=== PATIENT | female | born 1990 | race Caucasian/White ===

== ENCOUNTER 2016-10-06 10:28 | Emergency (ER) | payer OTHER, SELFPAY ==
[~2016-10-06] VITALS: Ht 170.2 cm; Wt 65.8 kg
[~2016-10-06 10:28] MED LIST: /INSUREG SC; ACET650S3 PO; ACET650T PO; AFRI0.0511; AUGM875T27 PO; BACT800T5 PO; BIRTH CONTROL PO; BISAC5TA PO; CEPH500C PO; DIABETIC VITAMIN PO; DIFL150T PO; EXCETAB68 PO; EXCETAB80 PO; EXCETAB81 PO; IBUP200T2 PO; IBUP60TA PO; IBUP80TA FT; INSUH10VL INJ; INSUH10VL SC; INSULANT SC; INSULIN PUMP SC; KEFL500C7 PO; MACR100C3 PO; MELA1CAP2 PO; MIRA3350 PO; ONDA1TAB15 PO; ONDA1TAB16 PO; ONDA4INJ48 PO; ORTHTAB5 PO; PERCOCET PO; PRENTAB7 PO; PRIL20CA PO; SENO8.6T10 PO; SENO8.6T9 PO; SUDA30TA PO; TRAZ50TA2 PO; TRAZ50TA4 OR; TRINTAB PO; TRINTAB11 PO; TYLE325T5 PO; VITAPRTA PO; VITMTA PO; YASM3TAB2 PO; YAZ3TAB PO; ZOFR20TA PO; ZOFR4SOL PO; ZOFR4TAB3 PO; [UNRECOGNIZED DRUG - CODE] PO; ditropan PO; novolog
[2016-10-06 10:29] VITALS: BP 116/67
[2016-10-06] MEDS ORDERED: LIDOCAINE 1% MDV 20ML VIAL SC ONE (11:00)
[2016-10-06] MEDS ORDERED: CLIN1CAP5 PO (11:31)
== END 2016-10-06 11:53 | disposition home or self-care (01) ==
LOC: M ED 11:43
DX: N76.2 Acute vulvitis (principal); J45.909 Unspecified asthma, uncomplicated; D25.9 Leiomyoma of uterus, unspecified; E10.9 Type 1 diabetes mellitus without complications; N83.209 Unspecified ovarian cyst, unspecified side; M43.10 Spondylolisthesis, site unspecified; F90.9 Attention-deficit hyperactivity disorder, unspecified type; Z79.4 Long term (current) use of insulin; Z79.3 Long term (current) use of hormonal contraceptives; Z88.8 Allergy status to other drugs, medicaments and biological substances; Z91.011 Allergy to milk products; Z87.442 Personal history of urinary calculi; Z87.440 Personal history of urinary (tract) infections

== ENCOUNTER 2017-02-06 20:26 | Emergency (ER) | payer OTHER ==
[~2017-02-06] VITALS: Ht 170.2 cm; Wt 62.7 kg
[~2017-02-06 20:26] MED LIST changes: +CLIN150C14 PO; +KEFL500C17 PO; -KEFL500C7 PO; -MACR100C3 PO; +MACR100C43 PO; -ONDA1TAB15 PO; -ONDA1TAB16 PO; +ONDA4TAB5 PO; +ONDA8TAB7 PO; +TRAZ50TA11 OR; -TRAZ50TA4 OR; -TRINTAB PO; +TRINTAB3 PO; +YAZ1TAB PO; -YAZ3TAB PO
[2017-02-06] MEDS ORDERED: HumuLIN R (REGULAR) INSULIN (NovoLIN R) **100U/ML** PER UNIT IV ONE (21:15)
[2017-02-06] MEDS ORDERED: NS 1,000 ML IV ONE (21:15)
[2017-02-06 21:40] LABS: BASO # 0.1 K/mm3 (0.0-0.2); BASO % 0.7 % (0.0-1.0); EOS # 0.1 K/mm3 (0.0-0.50); EOS % 1.6 % (0.0-3.0); LARGE UNSTAINED CELL # 0.2 K/mm3 (0.0-0.4); LARGE UNSTAINED CELL % 1.8 % (0.0-4.0); LYMPH % 21.6 % (24.0-44.0); MONO # 0.4 K/mm3 (0.0-0.8); MONO % 4.6 % (0.0-5.0); NEUTROPHILS # 5.8 K/mm3 (1.8-7.7); NEUTROPHILS % 69.7 % (36.0-66.0); PLATELET COUNT, AUTOMATED 273 k/mm3 (150-450); RED CELL DISTRIBUTION WIDTH 12.3 % (11.5-14.5); WHITE BLOOD COUNT 8.4 K/mm3 (4.0-10.0)
[2017-02-06 22:29] LABS: CONTROL LINE HCG INT CTR LINE PRESENT
[2017-02-06 22:43] LABS: ALBUMIN 3.6 GM/DL (3.2-5.2); ALBUMIN/GLOBULIN RATIO 1.13 (1.00-1.93); ALKALINE PHOSPHATASE 76 U/L (45-117); ALT/SGPT 18 U/L (12-78); AMYLASE 23 U/L (25-115); ANION GAP 8 MEQ/L (8-16); AST/SGOT 10 U/L (15-37); BILIRUBIN,DIRECT 0.2 MG/DL (0.0-0.2); BILIRUBIN,TOTAL 0.6 MG/DL (0.2-1.0); BLOOD UREA NITROGEN 14 MG/DL (7-18); CALCIUM LEVEL 8.7 MG/DL (8.5-10.1); CARBON DIOXIDE LEVEL 27 MEQ/L (21-32); CHLORIDE LEVEL 102 MEQ/L (98-107); CREATININE FOR GFR 0.93 MG/DL (0.55-1.02); GLOMERULAR FILTRATION RATE > 60.0 (>60); GLUCOSE, FASTING 356 MG/DL (70-105); POTASSIUM SERUM 3.7 MEQ/L (3.5-5.1); SODIUM LEVEL 137 MEQ/L (136-145); TOTAL PROTEIN 6.8 GM/DL (6.4-8.2)
[2017-02-07 00:20] VITALS: BP 100/65
--- NOTE | 2017-02-07 00:40 | REPUSA ---
CLINICAL HISTORY: Abdominal pain. Left colic. TECHNIQUE: Multiple axial, sagittal and coronal CT images were obtained through the abdomen and pelvi s without administration of oral or IV contrast material. COMMENTS: The liver is of uniform attenuation without mass or defect. There is no intra or extrahepatic biliary ductal dilatation. The spleen is normal. The gallbladder is contracted. The pancreas is of normal co ntour and attenuation characteristics. There is no evidence of adrenal mass. The kidneys are normal in size, shape and configuration. No renal or ureteral calculi are identified. There is no hydroureter or hydronephrosis. There is no evidence for appendicitis. There is severe wall thickening noted involving duodenum and j ejunum compatible with enteritis. No evidence for small or large bowel obstruction. There is no evide nce of abdominal ascites or lymphadenopathy. There is no evidence of intrinsic or extrinsic bladder mass. There is no pelvic lymphadenopathy. The uterus and ovaries are grossly WNL. Trace fluid is noted in the cul-de-sac. Images of the lung bases show no evidence of pleural or parenchymal mass. There are no pleural effusi ons. The bony structures are free of lytic or blastic lesions. IMPRESSION: No renal or ureteral calculi are identified. There is no hydroureter or hydronephrosis. Severe wall thickening noted involving duodenum and jejunum compatible with enteritis. Consultation w [facility] service is recommended. Thank you for your kind referral of this patient.
== END 2017-02-07 01:15 | disposition home or self-care (01) ==
LOC: M ED 20:26
DX: E10.65 Type 1 diabetes mellitus with hyperglycemia (principal); K52.9 Noninfective gastroenteritis and colitis, unspecified; Z97.4 Presence of external hearing-aid; Z79.3 Long term (current) use of hormonal contraceptives; Z91.011 Allergy to milk products; Z87.442 Personal history of urinary calculi; Z86.39 Personal history of other endocrine, nutritional and metabolic disease

== ENCOUNTER 2017-03-23 11:51 | Emergency (ER) | payer OTHER ==
[~2017-03-23] VITALS: Ht 170.2 cm; Wt 61.4 kg
[2017-03-23] MEDS ORDERED: LANTINJ4 SC (11:58)
[2017-03-23] MEDS ORDERED: NOVOINJ3 SC (11:58)
[2017-03-23] MEDS ORDERED: NS 1,000 ML IV ONE (12:45)
[2017-03-23 12:49] LABS: BASO # 0.1 10^3/uL (0.0-0.2); BASO % 0.8 % (0.0-1.0); CENTRAL VEN BASE EXCESS -1.5; CENTRAL VEN PARTL PRESSURE CO2 41.5 mmHg; CENTRAL VEN PARTL PRESSURE O2 30.6 mmHg; CENTRAL VEN STANDARD HCO3 22.2 MEQ/L; CENTRAL VEN TOTAL CO2 24.9 MEQ/L; CENTRAL VENOUS HCO3 23.7 MEQ/L; CENTRAL VENOUS PH 7.374 UNITS; EOS # 0.1 10^3/uL (0.0-0.50); IMMATURE GRANULOCYTE % 0.1 % (0-0); LYMPH # 1.6 10^3/uL (1.5-6.5); LYMPH % 21.8 % (24.0-44.0); MEAN CORPUSCULAR HEMOGLOBIN 31.3 pg (27.0-33.0); MEAN CORPUSCULAR VOLUME 89.6 fl (80.0-96.0); MONO # 0.5 10^3/uL (0.0-0.8); MONO % 6.8 % (0.0-5.0); NEUTROPHILS # 5.1 10^3/uL (1.8-7.7); NEUTROPHILS % 69.5 % (36.0-66.0); PLATELET COUNT, AUTOMATED 273 10^3/uL (150-450); RED CELL DISTRIBUTION WIDTH 12.3 % (11.5-14.5); WHITE BLOOD COUNT 7.3 10^3/uL (4.0-10.0)
[2017-03-23 13:10] LABS: ALBUMIN/GLOBULIN RATIO 1.05 (1.00-1.93); ALKALINE PHOSPHATASE 79 U/L (45-117); ALT/SGPT 16 U/L (12-78); ANION GAP 9 MEQ/L (8-16); AST/SGOT 8 U/L (15-37); BILIRUBIN,DIRECT 0.2 MG/DL (0.0-0.2); BILIRUBIN,TOTAL 0.6 MG/DL (0.2-1.0); BLOOD UREA NITROGEN 12 MG/DL (7-18); CALCIUM LEVEL 9.3 MG/DL (8.5-10.1); CARBON DIOXIDE LEVEL 25 MEQ/L (21-32); CHLORIDE LEVEL 101 MEQ/L (98-107); CREATININE FOR GFR 0.95 MG/DL (0.55-1.02); GLOMERULAR FILTRATION RATE > 60.0 (>60); GLUCOSE, FASTING 315 MG/DL (70-105); POTASSIUM SERUM 4.1 MEQ/L (3.5-5.1); SODIUM LEVEL 135 MEQ/L (136-145); TOTAL PROTEIN 7.8 GM/DL (6.4-8.2)
[2017-03-23 13:47] LABS: CONTROL LINE UCG INT CTR LINE PRESENT
[2017-03-23] MEDS ORDERED: ISOVUE-370 76% 100ML VIAL (Q9967) As Ordered ONE (13:59)
--- NOTE | 2017-03-23 15:02 | REP ---
CT abdomen and pelvis with IV but without oral contrast: History: Lower abdominal pain. Comparison CT study is from February 06, 2017. CT contrast dose: 100 mL of intravenous Isovue 370. CT findings: Preliminary digital operations consultant radiograph demonstrates an unremarkable bowel gas pattern. The lung bases are clear. There is no evidence of pleural effusion or upper abdominal ascites. The liver and the spleen are normal in size and homogeneous in texture. No adrenal lesion is seen. The gallbladder is unremarkable. The pancreas shows no morphologic abnormality. The kidneys enhance symmetrically and are unremarkable. There is no evidence of hydronephrosis or intrarenal calculus. No retroperitoneal mass or adenopathy is seen. Abdominal pelvic CT images demonstrate a normal caliber partially air-filled non-inflamed appendix in the right pelvis. Small and large bowel loops are unremarkable. Uterus is normal in appearance tipped somewhat to the left. No ovarian mass or significant cyst is seen. There is some contrast enhancement in the right ovary consistent with an involuting follicle cyst. No free fluid or free air. No abdominal wall defect is seen. No bony destructive lesion is observed. There is a bilateral L5 spondylolysis and a grade 1, 3 mm, L5-S1 spondylolisthesis noted incidentally. No bladder calculus is seen. Impression: No acute intra-abdominal abnormality. Normal appendix seen. Evidence of an involuting follicle cyst right ovary. Bilateral L5 spondylolysis and grade 1 L5-S1 spondylolisthesis noted incidentally. Signed by Deepak Kingston MD 03/23/2017 05:44 P
[2017-03-23] MEDS ORDERED: PERC5TAB12 PO (15:18)
[2017-03-23 15:40] VITALS: BP 108/69
== END 2017-03-23 15:42 | disposition home or self-care (01) ==
LOC: M ED 11:51
DX: N83.01 Follicular cyst of right ovary (principal); E10.9 Type 1 diabetes mellitus without complications; Z87.442 Personal history of urinary calculi; M54.9 Dorsalgia, unspecified; M25.519 Pain in unspecified shoulder; F90.9 Attention-deficit hyperactivity disorder, unspecified type; G43.909 Migraine, unspecified, not intractable, without status migrainosus; K46.9 Unspecified abdominal hernia without obstruction or gangrene; K85.90 Acute pancreatitis without necrosis or infection, unspecified; M43.10 Spondylolisthesis, site unspecified; Z96.0 Presence of urogenital implants; E73.9 Lactose intolerance, unspecified; Z79.4 Long term (current) use of insulin
CPT/HCPCS: 74177; 80048; 80076; 81001; 82803; 83690; 84703; 85025; 99284; Q9967

== ENCOUNTER 2017-04-09 08:40 | Inpatient (IN) | payer OTHER ==
[~2017-04-09] VITALS: Ht 170.2 cm; Wt 62.0 kg
[~2017-04-09 08:40] MED LIST changes: +LANTINJ4 SC; +NOVOINJ3 SC; +PERC5TAB12 PO
[2017-04-09] MEDS ORDERED: BIOT1CAP2 PO (08:59)
[2017-04-09] MEDS ORDERED: PREN1TAB11 PO (08:59)
[2017-04-09] MEDS ORDERED: NS 1,000 ML IV ONE (09:30)
[2017-04-09 10:07] LABS: BASO # 0.1 10^3/uL (0.0-0.2); BASO % 0.6 % (0.0-1.0); EOS # 0.1 10^3/uL (0.0-0.50); EOS % 0.7 % (0.0-3.0); IMMATURE GRANULOCYTE % 0.5 % (0-0); LYMPH # 1.1 10^3/uL (1.5-6.5); LYMPH % 12.8 % (24.0-44.0); MEAN CORPUSCULAR HEMOGLOBIN 31.3 pg (27.0-33.0); MEAN CORPUSCULAR HGB CONC 33.5 g/dl (32.0-36.5); MEAN CORPUSCULAR VOLUME 93.4 fl (80.0-96.0); MONO # 0.4 10^3/uL (0.0-0.8); MONO % 4.5 % (0.0-5.0); NEUTROPHILS % 80.9 % (36.0-66.0); PLATELET COUNT, AUTOMATED 265 10^3/uL (150-450); RED CELL DISTRIBUTION WIDTH 12.3 % (11.5-14.5); VENOUS BASE EXCESS -11.8 (-2.0-2.0); VENOUS PARTIAL PRESSURE CO2 33.2 mmHg (38.0-50.0); VENOUS PARTIAL PRESSURE O2 45.1 mmHg (30.0-50.0); VENOUS STANDARD HCO3 14.9 MEQ/L; VENOUS TOTAL CO2 15.3 MEQ/L (24.0-28.0); WHITE BLOOD COUNT 8.6 10^3/uL (4.0-10.0)
[2017-04-09 10:33] LABS: ALBUMIN 3.8 GM/DL (3.2-5.2); ALBUMIN/GLOBULIN RATIO 1.09 (1.00-1.93); ALKALINE PHOSPHATASE 70 U/L (45-117); ALT/SGPT 14 U/L (12-78); ANION GAP 16 MEQ/L (8-16); AST/SGOT 8 U/L (7-37); BILIRUBIN,DIRECT 0.3 MG/DL (0.0-0.2); BILIRUBIN,TOTAL 1.1 MG/DL (0.2-1.0); BLOOD UREA NITROGEN 13 MG/DL (7-18); CALCIUM LEVEL 8.7 MG/DL (8.5-10.1); CARBON DIOXIDE LEVEL 17 MEQ/L (21-32); CHLORIDE LEVEL 101 MEQ/L (98-107); CREATININE FOR GFR 0.72 MG/DL (0.55-1.02); GLOMERULAR FILTRATION RATE > 60.0 (>60); MAGNESIUM LEVEL 1.9 MG/DL (1.8-2.4); POTASSIUM SERUM 4.7 MEQ/L (3.5-5.1); SODIUM LEVEL 134 MEQ/L (136-145); TOTAL PROTEIN 7.3 GM/DL (6.4-8.2)
[2017-04-09 10:36] LABS: GLUCOSE, FASTING 446 MG/DL (70-105)
[2017-04-09] MEDS ORDERED: INSULIN HUMAN REGULAR 100 UNITS in NS 99 ML IV SCH ×3 (10:47→19:00)
[2017-04-09] MEDS ORDERED: NS 1,000 ML IV SCH (11:03)
[2017-04-09] MEDS ORDERED: POTASSIUM CHLORIDE INJ 40 MEQ in NS 1,000 ML IV SCH (11:10)
[2017-04-09] MEDS ORDERED: HAIR1CAP2 PO (11:12)
[2017-04-09] MEDS ORDERED: KCL 40MEQ in NS 1000ML 1,000 ML IV SCH (11:30)
--- NOTE | 2017-04-09 13:30 | HPEPDOC ---
General Date of Admission 04/09/2017 1:30 PM Chief Complaint The patient is a 26-year-old female Presented to the ER with concerns of possible DKA. History of Present Illness Patient is a 26-year-old female with a PMHx IDDM1, PCOS, Uterine Fibroids and Recent Positive test who presented to the ER with concerns of possible DKA. Patient has noted that usually when she does experience DKA she experiences nausea, upper abdominal pain and vomiting. She had a similar presentation today and noted that she had abdominal pain and nausea. It is noted that shes began to experience her symptoms since the last few days. She denied any vomiting. Patient denied any fever, she did note chills and sweats. She described abdominal pain as occurring in the center upper portion of her abdomen scribed pain as a burning, 6/10 pain. No radiation. No alleviating or aggravating factors. Patient denies any constipation, diarrhea or dysuria. Patient denies any chest pain, or shortness of breath. She does note palpitations. Patient notes that she has been compliant with her medications. It is of note that the patient used to be on an insulin pump and was switched over to an insulin Flex pen, which occurred approximately one month ago. Since that point patients glucose has remained poorly controlled. She notes that her last DKA event was 1 year ago. Patient has also noted that she has recently . She had performed a home test that was positive. She subsequently followed up her primary care provider who had performed hCG confirmatory test that was found to be positive. She has not established care with [facility] physician. She notes that her periods have been irregular, and notes that her last period was on January 09. Home Medications Scheduled (Hair/Skin/Nails) 1 Cap Cap, 1 CAP PO DAILY, (Reported) Insulin Aspart (Novolog Flexpen) 100 Unit/Ml Inj, 1 DOSE SC Q2H, (Reported) per sliding scale Insulin Glargine (Lantus Solostar) 100 Unit/Ml Inj, 15 UNITS SC BID, (Reported) Multivitamins/ ( Vitamin 27-0.8 mg) 1 Tab Tab, 1 TAB PO DAILY, ( Reported) Allergies Coded Allergies: Casein (Unverified Allergy, Unknown, 04/09/17) Lactose (Unverified Allergy, Unknown, 10/11/13) Past Medical History Medical History IDDM1, PCOS, Uterine Fibroids and Recent Positive Surgical History Hernia repair as a child Left kidney stents placed for kidney stones in 2013, and subsequently removed Family History - Mother: Is unsure of her biological mothers medical history - Father: Peptic ulcers, status post cholecystectomy - No history of malignancies Social History - Denies the use of alcohol, tobacco or illicit drugs - Denies recent travel or sick contacts - Lives with in [place] - Occupation; unemployed Review of Symptoms Other systems Review of systems negative otherwise stated in HPI Vital Signs - Vitals: BP 112/74, HR 113, RR 16, Sat 99%RA, Temp 97.9 - General: Lying in bed, No acute distress, Speaking in full sentences, AAOx3 - HEENT: NC, AT, PERRLA, EOMI - CVS: Regular rhythm, Tachycardic, +S1S2 - Lungs: Fair air entry bilaterally, Clear to auscultation, No wheezing / rales / rhonchi - Abdomen: Soft, Non-distended, Non-tender - Extremities: No lower extremity edema, No calf tenderness - Neuro: No focal motor or sensory deficit - Skin: No visible rashes Laboratory Data Labs 24H Laboratory Tests 2 04/09/17 09:05: Bedside Glucose (Misc Panel) 401H 04/09/17 09:39: Immature Granulocyte % (Auto) 0.5H, White Blood Count 8.6, Red Blood Count 4.38 , Hemoglobin 13.7, Hematocrit 40.9, Mean Corpuscular Volume 93.4, Mean Corpuscular Hemoglobin 31.3, Mean Corpuscular Hemoglobin Concent 33.5, Red Cell Distribution Width 12.3, Platelet Count 265, Neutrophils (%) (Auto) 80.9H, Lymphocytes (%) (Auto) 12.8L, Monocytes (%) (Auto) 4.5, Eosinophils (%) (Auto) 0.7, Basophils (%) (Auto) 0.6, Neutrophils # (Auto) 7.0, Lymphocytes # (Auto) 1.1L, Monocytes # (Auto) 0.4, Eosinophils # (Auto) 0.1, Basophils # (Auto) 0.1, Immature Granulocyte # (Auto) 0.0, Nucleated Red Blood Cells % (auto) 0.0, Urine Appearance CLEAR, Urine Color STRAW, Urine pH 5.0, Urine Specific [place] 1.028, Urine Protein NEGATIVE, Urine Glucose (UA) 3+H, Urine Ketones 2+H, Urine Urobilinogen 0.2, Urine Bilirubin NEGATIVE, Urine Leukocyte Esterase NEGATIVE, Urine Blood NEGATIVE, Urine Nitrite NEGATIVE, Urine WBC (Auto) 1, Urine RBC ( Auto) 1, Urine Hyaline Casts (Auto) 0, Urine Bacteria (Auto) NEGATIVE, Urine Squamous Epithelial Cells 0, Urine Sperm (Auto) , Blood Gas Bicarbonate Standard 14.9, Venous Blood pH 7.250L, Venous Blood Partial Pressure CO2 33.2L, Venous Blood Partial Pressure O2 45.1, Venous Blood Total Carbon Dioxide 15.3L, Venous Blood HCO3 14.2L, Venous Blood Oxygen Saturation 77.0, Venous Blood Base Excess -11.8L, Anion Gap 16, Glomerular Filtration Rate > 60.0, Estimated Mean Plasma Glucose 235H, Hemoglobin A1c 9.8, Calcium Level 8.7, Magnesium Level 1.9 , Aspartate Amino Transf (AST/SGOT) 8, Alanine Aminotransferase (ALT/SGPT) 14, Alkaline Phosphatase 70, Total Bilirubin 1.1H, Direct Bilirubin 0.3H, Total Protein 7.3, Albumin 3.8, Albumin/Globulin Ratio 1.09, Lipase 131, Human Chorionic Gonadotropin, Quant 794, B-Hydroxybutyrate > 46.00H 04/09/17 11:02: Bedside Glucose (Misc Panel) 374H 04/09/17 12:55: Bedside Glucose (Misc Panel) 272H CBC/BMP Laboratory Tests 04/09/17 09:39 Red Blood Count 4.38, Mean Corpuscular Volume 93.4, Mean Corpuscular Hemoglobin 31.3, Mean Corpuscular Hemoglobin Concent 33.5, Red Cell Distribution Width 12.3 , Neutrophils (%) (Auto) 80.9 H, Lymphocytes (%) (Auto) 12.8 L, Monocytes (%) ( Auto) 4.5, Eosinophils (%) (Auto) 0.7, Basophils (%) (Auto) 0.6, Neutrophils # ( Auto) 7.0, Lymphocytes # (Auto) 1.1 L, Monocytes # (Auto) 0.4, Eosinophils # ( Auto) 0.1, Basophils # (Auto) 0.1 Plan / VTE VTE Prophylaxis Ordered?: Yes Plan Plan Abdominal pain, nausea and elevated glucose - likely 2/2 DKA - Presented with 2 day history of abdominal pain and nausea - Review of systems negative for any signs of infection, remains afebrile - Patient has noted that she has recently changed her insulin regimen, has been poorly controlled - Physical mild epigastric tenderness - Labs indicate hyperglycemia, no significant anion gap, noted to have metabolic acidosis, elevated beta hydroxybutyrate - Will start IV fluid hydration and insulin drip - Will check comprehensive metabolic panel, magnesium and phosphate every 4 hours - Will supplement electrolytes accordingly Recent positive test - Will get ultrasound abdomen/pelvis region for first trimester - [facility] on consult and for management of care Uterine fibroids PCOS Gastrointestinal prophylaxis - Will start famotidine DVT prophylaxis - Will start sleeve compression devices VERONICA ATKINSON MD Apr 09, 2017 13:30
[2017-04-09 13:33] LABS: VENOUS BASE EXCESS -11.5 (-2.0-2.0); VENOUS O2 SATURATION 97.6 % (60.0-80.0); VENOUS PARTIAL PRESSURE CO2 28.9 mmHg (38.0-50.0); VENOUS PARTIAL PRESSURE O2 100.2 mmHg (30.0-50.0); VENOUS STANDARD HCO3 15.6 MEQ/L; VENOUS TOTAL CO2 14.5 MEQ/L (24.0-28.0)
--- NOTE | 2017-04-09 13:37 | REP ---
LIMITED ABDOMINAL ULTRASOUND: 04/09/2017. Clinical history: Right upper quadrant evaluation. Comparison: CT abdomen and pelvis without contrast 02/06/2017. Findings: Sonographic evaluation of the right upper quadrant shows the liver homogeneous in echotexture. I see no hepatic mass, biliary dilatation or perihepatic ascites. No fatty liver change. The gallbladder is adequately filled with a 2 mm wall thickness. There is no stone, sludge or pericholecystic fluid. No sonographic Guadalupe's sign. The common duct is 3.8 mm without a common duct stone. Pancreas grossly unremarkable. The right kidney 11.1 x 5.6 x 4.8 cm. No stone, mass or hydronephrosis visible. Impression: 1. Negative right upper quadrant ultrasound. The liver, common duct, pancreas, and right kidney were unremarkable. The gallbladder shows no stone, sludge, wall thickening or pericholecystic fluid. No sonographic Guadalupe's sign. Signed by Rodney Pool MD 04/09/2017 05:35 P
--- NOTE | 2017-04-09 13:39 | REP ---
Emergency first trimester obstetric sonography: History: Diabetic ketoacidosis. Findings: Transabdominal and transvaginal scanning are performed. There is a small sac-like structure in the uterine endometrium which could be an early IUP. Mean sac size diameter is 3 mm corresponding with a 5 week 0 day gestational age estimate. No embryonic pole is seen. Possible yolk sac. No free fluid is seen. Normal ovaries are observed bilaterally. Right ovary measures 4.0 x 2.3 x 2.3 cm. Left ovary measures 2.9 x 1.5 x 2.6 cm. Doppler flow is normal in both ovaries. Resistive indices are 0.63 on the right and 0.48 on the left. Uterine dimensions are 8.5 x 4.1 x 5.7 cm. Impression: 3 mm sac-like structure in the uterine endometrium may be early IUP, 5 week 0 day size. No other abnormality. Signed by Deepak Kingston MD 04/09/2017 04:49 P
[2017-04-09] MEDS: KCL 40MEQ IN D5/0.45NS 1000ML 1,000 ML IV SCH ×2 (14:34→21:29)
[2017-04-09 14:36] LABS: MAGNESIUM LEVEL 1.7 MG/DL (1.8-2.4); PHOSPHORUS LEVEL 1.6 MG/DL (2.5-4.9)
[2017-04-09 14:51] LABS: ANION GAP 16 MEQ/L (8-16); BLOOD UREA NITROGEN 12 MG/DL (7-18); CALCIUM LEVEL 8.1 MG/DL (8.5-10.1); CARBON DIOXIDE LEVEL 13 MEQ/L (21-32); CHLORIDE LEVEL 108 MEQ/L (98-107); CREATININE FOR GFR 0.63 MG/DL (0.55-1.02); GLOMERULAR FILTRATION RATE > 60.0 (>60); GLUCOSE, FASTING 245 MG/DL (70-105); POTASSIUM SERUM 4.6 MEQ/L (3.5-5.1); SODIUM LEVEL 137 MEQ/L (136-145)
[2017-04-09] MEDS ORDERED: INFLUENZA QUADRIVALENT PF VACCINE 0.5ML SYRINGE (90686) IM SCH (15:00)
[2017-04-09] MEDS ORDERED: MAG SULF 1GM/100ML (MAG RUN) 1 GM in APPROPRIATE DILUENT 1 EA IV ONE (15:15)
[2017-04-09 15:40] VITALS: BP 115/64
[2017-04-09] MEDS: SODIUM PHOSPHATE INJ 30 MMOL in D5W 500 ML IV SCH ×2 (16:00→20:34)
--- NOTE | 2017-04-09 16:18 | CR.PDOC ---
[facility] Consultation Consultation DATE OF CONSULTATION: Apr 09, 2017 PRIMARY CARE PHYSICIAN: [facility] REFERRING PROVIDER: Dr. Styles, Hospitalist REASON FOR CONSULTATION/CHIEF COMPLAINT: DKA in the setting of early HPI: Tali is a 26yo with lmp 09 January 2017 with type I DM who is being admitted to ICU for DKA. She presented this morning with elevated glucose levels that she could not control along with epigastric pain and nausea. She was last admitted for DKA 1 year ago. She notes she is a "brittle type I diabetic". Last Ahlta note shows HgbA1c in January was 10. She is normally on an insulin pump, but was using insulin pen recently with plan to switch to an upgraded pump. She denies any vaginal bleeding. Has had breast tenderness. She was not using any form of contraception, states they were told it was "unlikely they would ever conceive" with the patient having Type I DM. He states they were happy with the discovery of the . Her LMP would place her at 12w6d. Normotensive, slight tachycardia, afebrile General: thin female resting comfortably Labs: hcg 794 admission glucose 446, HgbA1c today 9.8 Radiology: TVUS today shows likely intrauterine GS, possible YS, no pole, no adnexal masses. Assessment: Tali is a 26yo with lmp 09 January 2017 with type I DM being admitted for DKA with initiation of insulin drip. TVUS and hcg quant are not consistent with her dates. The discrepancy could be inaccurate dates with viable early vs. hvac sales representative of early miscarriage. No vaginal bleeding. Hemodynamically stable. Plan: -Manage DKA per protocol, good glucose control is essential to have a normal developing -Repeat hcg quant 0930 on 04/11 (ordered), a doubling of the value would indicate viable . -Discussed with patient the very high risk of miscarriage with high glucose values, elevated risk of abnormal development such as sacral agenesis and cardiac defects with HgbA1c > 10 -Going back to an insulin pump would be ideal. Our practice typically manages the OB care for type I DM patients in conjunction with endocrinology -Recommend PNV if orally tolerated -We will continue to follow MD Magan [facility] Vital Signs/I&O Vital Signs Date Time Temp Pulse Resp B/P (MAP) Pulse Ox O2 Delivery O2 Flow Rate FiO2 04/09/17 14:25 90 97 04/09/17 14:22 99.1 18 102/65 (77) Room Air I&O- Last 24 Hours up to 6 AM 04/10/17 06:00 Intake Total 350 ml Balance 350 ml Laboratory Data Labs 24H Laboratory Tests 2 04/09/17 09:05: Bedside Glucose (Misc Panel) 401H 04/09/17 09:39: Immature Granulocyte % (Auto) 0.5H, White Blood Count 8.6, Red Blood Count 4.38 , Hemoglobin 13.7, Hematocrit 40.9, Mean Corpuscular Volume 93.4, Mean Corpuscular Hemoglobin 31.3, Mean Corpuscular Hemoglobin Concent 33.5, Red Cell Distribution Width 12.3, Platelet Count 265, Neutrophils (%) (Auto) 80.9H, Lymphocytes (%) (Auto) 12.8L, Monocytes (%) (Auto) 4.5, Eosinophils (%) (Auto) 0.7, Basophils (%) (Auto) 0.6, Neutrophils # (Auto) 7.0, Lymphocytes # (Auto) 1.1L, Monocytes # (Auto) 0.4, Eosinophils # (Auto) 0.1, Basophils # (Auto) 0.1, Immature Granulocyte # (Auto) 0.0, Nucleated Red Blood Cells % (auto) 0.0, Urine Appearance CLEAR, Urine Color STRAW, Urine pH 5.0, Urine Specific [place] 1.028, Urine Protein NEGATIVE, Urine Glucose (UA) 3+H, Urine Ketones 2+H, Urine Urobilinogen 0.2, Urine Bilirubin NEGATIVE, Urine Leukocyte Esterase NEGATIVE, Urine Blood NEGATIVE, Urine Nitrite NEGATIVE, Urine WBC (Auto) 1, Urine RBC ( Auto) 1, Urine Hyaline Casts (Auto) 0, Urine Bacteria (Auto) NEGATIVE, Urine Squamous Epithelial Cells 0, Urine Sperm (Auto) , Blood Gas Bicarbonate Standard 14.9, Venous Blood pH 7.250L, Venous Blood Partial Pressure CO2 33.2L, Venous Blood Partial Pressure O2 45.1, Venous Blood Total Carbon Dioxide 15.3L, Venous Blood HCO3 14.2L, Venous Blood Oxygen Saturation 77.0, Venous Blood Base Excess -11.8L, Anion Gap 16, Glomerular Filtration Rate > 60.0, Estimated Mean Plasma Glucose 235H, Hemoglobin A1c 9.8, Calcium Level 8.7, Magnesium Level 1.9 , Aspartate Amino Transf (AST/SGOT) 8, Alanine Aminotransferase (ALT/SGPT) 14, Alkaline Phosphatase 70, Total Bilirubin 1.1H, Direct Bilirubin 0.3H, Total Protein 7.3, Albumin 3.8, Albumin/Globulin Ratio 1.09, Lipase 131, Human Chorionic Gonadotropin, Quant 794, B-Hydroxybutyrate > 46.00H 04/09/17 11:02: Bedside Glucose (Misc Panel) 374H 04/09/17 12:55: Bedside Glucose (Misc Panel) 272H 04/09/17 13:23: Blood Gas Bicarbonate Standard 15.6, Venous Blood pH 7.291L, Venous Blood Partial Pressure CO2 28.9L, Venous Blood Partial Pressure O2 100.2H, Venous Blood Total Carbon Dioxide 14.5L, Venous Blood HCO3 13.6L, Venous Blood Oxygen Saturation 97.6H, Venous Blood Base Excess -11.5L, Anion Gap 16, Glomerular Filtration Rate > 60.0, Blood Urea Nitrogen 12, Creatinine 0.63, Sodium Level 137, Potassium Level 4.6, Chloride Level 108H, Carbon Dioxide Level 13L, Calcium Level 8.1L, Phosphorus Level 1.6L, Magnesium Level 1.7L 04/09/17 13:31: Bedside Glucose (Misc Panel) 221H 04/09/17 14:14: Bedside Glucose (Misc Panel) 178H CBC/BMP Laboratory Tests 04/09/17 09:39 Red Blood Count 4.38, Mean Corpuscular Volume 93.4, Mean Corpuscular Hemoglobin 31.3, Mean Corpuscular Hemoglobin Concent 33.5, Red Cell Distribution Width 12.3 , Neutrophils (%) (Auto) 80.9 H, Lymphocytes (%) (Auto) 12.8 L, Monocytes (%) ( Auto) 4.5, Eosinophils (%) (Auto) 0.7, Basophils (%) (Auto) 0.6, Neutrophils # ( Auto) 7.0, Lymphocytes # (Auto) 1.1 L, Monocytes # (Auto) 0.4, Eosinophils # ( Auto) 0.1, Basophils # (Auto) 0.1 04/09/17 13:23 Calcium Level 8.1 L Microbiology Microbiology 04/09/17 Blood Culture, Received Pending 04/09/17 Blood Culture, Received Pending Allergies Coded Allergies: Casein (Unverified Allergy, Unknown, 04/09/17) Lactose (Unverified Allergy, Unknown, 10/11/13) Home Medications Scheduled (Hair/Skin/Nails) 1 Cap Cap, 1 CAP PO DAILY, (Reported) Insulin Aspart (Novolog Flexpen) 100 Unit/Ml Inj, 1 DOSE SC Q2H, (Reported) per sliding scale Insulin Glargine (Lantus Solostar) 100 Unit/Ml Inj, 15 UNITS SC BID, (Reported) Multivitamins/ ( Vitamin 27-0.8 mg) 1 Tab Tab, 1 TAB PO DAILY, ( Reported) ROSAMARIA ROBERTSON MD Apr 09, 2017 15:33
[2017-04-09] MEDS: INSULIN IV RATE CHANGE DOCUMENTATION ML/HR XX SCH ×2 (17:27→23:15)
[2017-04-09 18:26] LABS: ALBUMIN 3.1 GM/DL (3.2-5.2); ALBUMIN/GLOBULIN RATIO 1.03 (1.00-1.93); ALKALINE PHOSPHATASE 54 U/L (45-117); ALT/SGPT 13 U/L (12-78); ANION GAP 14 MEQ/L (8-16); AST/SGOT 6 U/L (7-37); BILIRUBIN,TOTAL 0.7 MG/DL (0.2-1.0); BLOOD UREA NITROGEN 9 MG/DL (7-18); CALCIUM LEVEL 7.9 MG/DL (8.5-10.1); CARBON DIOXIDE LEVEL 15 MEQ/L (21-32); CHLORIDE LEVEL 107 MEQ/L (98-107); CREATININE FOR GFR 0.52 MG/DL (0.55-1.02); GLOMERULAR FILTRATION RATE > 60.0 (>60); GLUCOSE, FASTING 231 MG/DL (70-105); MAGNESIUM LEVEL 2.1 MG/DL (1.8-2.4); POTASSIUM SERUM 4.1 MEQ/L (3.5-5.1); SODIUM LEVEL 136 MEQ/L (136-145); TOTAL PROTEIN 6.1 GM/DL (6.4-8.2)
--- NOTE | 2017-04-09 18:34 | ECGEPIP ---
Stationary ECG Study [facility] Test Date: 2017-04-09 Pat Name: VINOD AREVALO Department: Room: [place] [address] Gender: F Unit Support Representative: gavin : 1990 Requested By: EVRONICA ATKINSON Order Number: [id number] Reading MD: Gabriele Najera Measurements Intervals [place] Rate: 96 P: 71 AR: 150 QRS: 56 QRSD: 70 T: 41 QT: 322 QTc: 408 Interpretive Statements SINUS RHYTHM PRECORDIAL T WAVE ABNORMALITIES, SUSPECT DUE TO ARTIFACT SIMILAR TO 12/31/14 Electronically Signed On 04-09-2017 18:34:14 EST by Gabriele Najera
[2017-04-09 20:00] VITALS: BP 98/54
[2017-04-09] MEDS: FAMOTIDINE 20 MG TAB PO SCH (20:34)
[2017-04-09] MEDS ORDERED: KCL 40MEQ IN D5/0.45%NACL 1000 ML As Ordered ONE (21:23)
[2017-04-09 22:02] LABS: ALBUMIN 3.1 GM/DL (3.2-5.2); ALBUMIN/GLOBULIN RATIO 0.97 (1.00-1.93); ALKALINE PHOSPHATASE 57 U/L (45-117); ALT/SGPT 13 U/L (12-78); ANION GAP 12 MEQ/L (8-16); AST/SGOT 7 U/L (7-37); BILIRUBIN,TOTAL 0.6 MG/DL (0.2-1.0); BLOOD UREA NITROGEN 8 MG/DL (7-18); CALCIUM LEVEL 7.7 MG/DL (8.5-10.1); CARBON DIOXIDE LEVEL 17 MEQ/L (21-32); CHLORIDE LEVEL 108 MEQ/L (98-107); CREATININE FOR GFR 0.72 MG/DL (0.55-1.02); GLOMERULAR FILTRATION RATE > 60.0 (>60); GLUCOSE, FASTING 223 MG/DL (70-105); MAGNESIUM LEVEL 1.8 MG/DL (1.8-2.4); PHOSPHORUS LEVEL 4.3 MG/DL (2.5-4.9); POTASSIUM SERUM 4.1 MEQ/L (3.5-5.1); SODIUM LEVEL 137 MEQ/L (136-145); TOTAL PROTEIN 6.3 GM/DL (6.4-8.2)
[2017-04-10] VITALS: BP 102/60
[2017-04-10] MEDS: INSULIN IV RATE CHANGE DOCUMENTATION ML/HR XX SCH ×4 (00:35→04:15)
[2017-04-10 02:10] LABS: ALBUMIN 2.7 GM/DL (3.2-5.2); ALKALINE PHOSPHATASE 53 U/L (45-117); ALT/SGPT 13 U/L (12-78); ANION GAP 8 MEQ/L (8-16); AST/SGOT 8 U/L (7-37); BILIRUBIN,TOTAL 0.5 MG/DL (0.2-1.0); BLOOD UREA NITROGEN 5 MG/DL (7-18); CALCIUM LEVEL 7.3 MG/DL (8.5-10.1); CARBON DIOXIDE LEVEL 19 MEQ/L (21-32); CHLORIDE LEVEL 110 MEQ/L (98-107); CREATININE FOR GFR 0.56 MG/DL (0.55-1.02); GLOMERULAR FILTRATION RATE > 60.0 (>60); GLUCOSE, FASTING 240 MG/DL (70-105); MAGNESIUM LEVEL 1.8 MG/DL (1.8-2.4); PHOSPHORUS LEVEL 4.1 MG/DL (2.5-4.9); POTASSIUM SERUM 3.9 MEQ/L (3.5-5.1); SODIUM LEVEL 137 MEQ/L (136-145); TOTAL PROTEIN 5.7 GM/DL (6.4-8.2)
[2017-04-10 04:00] VITALS: BP 92/54
[2017-04-10] MEDS: KCL 40MEQ IN D5/0.45NS 1000ML 1,000 ML IV SCH (04:10)
[2017-04-10 05:43] LABS: BASO % 0.6 % (0.0-1.0); EOS # 0.2 10^3/uL (0.0-0.50); EOS % 3.4 % (0.0-3.0); IMMATURE GRANULOCYTE % 0.3 % (0-0); MEAN CORPUSCULAR HEMOGLOBIN 31.7 pg (27.0-33.0); MEAN CORPUSCULAR HGB CONC 34.4 g/dl (32.0-36.5); MEAN CORPUSCULAR VOLUME 92.1 fl (80.0-96.0); MONO # 0.6 10^3/uL (0.0-0.8); MONO % 8.8 % (0.0-5.0); NEUTROPHILS # 4.1 10^3/uL (1.8-7.7); NEUTROPHILS % 57.9 % (36.0-66.0); PLATELET COUNT, AUTOMATED 243 10^3/uL (150-450); RED CELL DISTRIBUTION WIDTH 12.4 % (11.5-14.5)
[2017-04-10] MEDS ORDERED: LEVEMIR (INSULIN DETEMIR) 1 UNITS/0.01ML SC ONE (06:00)
[2017-04-10] MEDS: D5W/0.45% SODIUM CHLORIDE 1,000 ML IV SCH ×3 (06:04→19:53)
[2017-04-10 06:22] LABS: ALBUMIN 2.6 GM/DL (3.2-5.2); ALBUMIN/GLOBULIN RATIO 0.84 (1.00-1.93); ALKALINE PHOSPHATASE 52 U/L (45-117); ALT/SGPT 13 U/L (12-78); ANION GAP 6 MEQ/L (8-16); AST/SGOT 9 U/L (7-37); BILIRUBIN,TOTAL 0.4 MG/DL (0.2-1.0); BLOOD UREA NITROGEN 5 MG/DL (7-18); CALCIUM LEVEL 7.4 MG/DL (8.5-10.1); CARBON DIOXIDE LEVEL 20 MEQ/L (21-32); CHLORIDE LEVEL 113 MEQ/L (98-107); CREATININE FOR GFR 0.46 MG/DL (0.55-1.02); GLOMERULAR FILTRATION RATE > 60.0 (>60); GLUCOSE, FASTING 175 MG/DL (70-105); MAGNESIUM LEVEL 1.9 MG/DL (1.8-2.4); SODIUM LEVEL 139 MEQ/L (136-145); TOTAL PROTEIN 5.7 GM/DL (6.4-8.2)
[2017-04-10] MEDS ORDERED: GLUCAGON FOR INJ 1 MG VIAL (J1610) SC PRN (07:45)
[2017-04-10] MEDS ORDERED: DEXTROSE 50% 50 ML SYRINGE IV PRN (07:45)
[2017-04-10] MEDS ORDERED: GLUCOSE 4 GM CHEW TABLET PO PRN (07:45)
[2017-04-10 08:00] VITALS: BP 90/55
[2017-04-10] MEDS: FAMOTIDINE 20 MG TAB PO SCH ×2 (08:33→21:20)
[2017-04-10] MEDS: HumaLOG INSULIN (NovoLOG) PER UNIT SC SCH ×4 (08:33→21:00)
[2017-04-10] MEDS ORDERED: PRENATAL VITAMINS CHEWABLE TABLET PO SCH (09:00)
[2017-04-10] MEDS ORDERED: LEVEMIR (INSULIN DETEMIR) 1 UNITS/0.01ML SC SCH ×2 (09:00→21:00)
[2017-04-10 09:05] LABS: ALBUMIN 2.9 GM/DL (3.2-5.2); ALBUMIN/GLOBULIN RATIO 1.12 (1.00-1.93); ALKALINE PHOSPHATASE 50 U/L (45-117); ALT/SGPT 12 U/L (12-78); ANION GAP 8 MEQ/L (8-16); AST/SGOT 7 U/L (7-37); BILIRUBIN,TOTAL 0.5 MG/DL (0.2-1.0); BLOOD UREA NITROGEN 4 MG/DL (7-18); CALCIUM LEVEL 7.9 MG/DL (8.5-10.1); CARBON DIOXIDE LEVEL 20 MEQ/L (21-32); CHLORIDE LEVEL 112 MEQ/L (98-107); CREATININE FOR GFR 0.51 MG/DL (0.55-1.02); GLOMERULAR FILTRATION RATE > 60.0 (>60); GLUCOSE, FASTING 224 MG/DL (70-105); MAGNESIUM LEVEL 1.8 MG/DL (1.8-2.4); PHOSPHORUS LEVEL 2.9 MG/DL (2.5-4.9); POTASSIUM SERUM 4.4 MEQ/L (3.5-5.1); SODIUM LEVEL 140 MEQ/L (136-145); TOTAL PROTEIN 5.5 GM/DL (6.4-8.2)
[2017-04-10 11:40] VITALS: BP 112/71
--- NOTE | 2017-04-10 12:05 | IPNPDOC ---
Text Note Date of Service The patient was seen on 04/10/17. NOTE Subjective: Patient is a 26-year-old female with a PMHx IDDM1, PCOS, Uterine Fibroids and Recent Positive test who presented to the ER with concerns of possible DKA. Presented with epigastric pain and nausea. Labs in ER indicated DKA with an elevated beta-hydroxybutyrate. Patient was admitted to ICU and started on an insulin drip. Auto Specialty Services Manager was consulted and evaluated patient in ER for her positive test. Patient was seen and examined at the bedside. Currently she notes that she feels better. Notes that her dry mouth has resolved. Denies any abdominal pain. Her insulin drip has been discontinued and she has been started on long acting insulin subcutaneous. Objective: Vitals (See below) General: Lying in bed, no acute distress, comfortable, AAOx3 HEENT: NC, AT CVS: RRR, +S1S2 Lungs: Fair air entry b/l, -w/r/r Abdomen: Soft, ND, NT Extremities: - Edema, - Calf tenderness Assessment and plan: s/p Abdominal pain, nausea and elevated glucose - likely 2/2 DKA - Clinically has resolution of abdominal pain and nausea - Patient has noted that she has recently changed her insulin regimen, has been poorly controlled - s/p Epigastric pain - Elevated beta hydroxybutyrate has improved - s/p IV fluid hydration and insulin drip; currently on insulin SQ (AC/HS) and long acting - Will start consistent carbohydrate diet today Non AG Metabolic acidosis - s/p IV fluids - Will check urine electrolytes - Will repeat lab work Recent positive test - 1st trimester US 04/09: 3mm sac-like structure in uterine endometrium may be early IUP; 5 weeks - Awaiting repeat hCG tomorrow - evaluate if doubled value to indicate viable - TRAINING AND DEVELOPMENT PROFESSIONAL on consult and for management of care Uterine fibroids PCOS Gastrointestinal prophylaxis - c/w famotidine DVT prophylaxis - c/w sleeve compression devices VS,Fishbone, I+O VS, Fishbone, I+O Laboratory Tests 04/09/17 13:23 Calcium Level 8.1 L 04/09/17 17:31 Calcium Level 7.9 L, Aspartate Amino Transf (AST/SGOT) 6 L, Alanine Aminotransferase (ALT/SGPT) 13, Alkaline Phosphatase 54, Total Bilirubin 0.7, Total Protein 6.1 L, Albumin 3.1 L 04/09/17 21:30 Calcium Level 7.7 L, Aspartate Amino Transf (AST/SGOT) 7, Alanine Aminotransferase (ALT/SGPT) 13, Alkaline Phosphatase 57, Total Bilirubin 0.6, Total Protein 6.3 L, Albumin 3.1 L, Phosphorus Level 4.3 # 04/10/17 01:34 Calcium Level 7.3 L, Aspartate Amino Transf (AST/SGOT) 8, Alanine Aminotransferase (ALT/SGPT) 13, Alkaline Phosphatase 53, Total Bilirubin 0.5, Total Protein 5.7 L, Albumin 2.7 L, Phosphorus Level 4.1 04/10/17 05:34 Red Blood Count 3.66 L, Mean Corpuscular Volume 92.1, Mean Corpuscular Hemoglobin 31.7, Mean Corpuscular Hemoglobin Concent 34.4, Red Cell Distribution Width 12.4, Neutrophils (%) (Auto) 57.9, Lymphocytes (%) (Auto) 29.0, Monocytes (%) (Auto) 8.8 H, Eosinophils (%) (Auto) 3.4 H, Basophils (%) ( Auto) 0.6, Neutrophils # (Auto) 4.1, Lymphocytes # (Auto) 2.0, Monocytes # (Auto ) 0.6, Eosinophils # (Auto) 0.2, Basophils # (Auto) 0.0 04/10/17 05:35 Calcium Level 7.4 L, Aspartate Amino Transf (AST/SGOT) 9, Alanine Aminotransferase (ALT/SGPT) 13, Alkaline Phosphatase 52, Total Bilirubin 0.4, Total Protein 5.7 L, Albumin 2.6 L 04/10/17 08:32 Calcium Level 7.9 L, Aspartate Amino Transf (AST/SGOT) 7, Alanine Aminotransferase (ALT/SGPT) 12, Alkaline Phosphatase 50, Total Bilirubin 0.5, Total Protein 5.5 L, Albumin 2.9 L, Phosphorus Level 2.9 # Vital Signs Date Time Temp Pulse Resp B/P (MAP) Pulse Ox O2 Delivery O2 Flow Rate FiO2 04/10/17 08:00 98.2 90 16 90/55 (67) 98 Room Air I&O- Last 24 Hours up to 6 AM 04/11/17 06:00 Intake Total 241 ml Output Total 400 ml Balance -159 ml VERONICA ATKINSON MD Apr 10, 2017 12:05
[2017-04-10 12:48] LABS: ALBUMIN 3.3 GM/DL (3.2-5.2); ALBUMIN/GLOBULIN RATIO 1.06 (1.00-1.93); ALKALINE PHOSPHATASE 61 U/L (45-117); ALT/SGPT 14 U/L (12-78); ANION GAP 9 MEQ/L (8-16); AST/SGOT 9 U/L (7-37); BILIRUBIN,TOTAL 0.6 MG/DL (0.2-1.0); BLOOD UREA NITROGEN 7 MG/DL (7-18); CALCIUM LEVEL 8.8 MG/DL (8.5-10.1); CARBON DIOXIDE LEVEL 21 MEQ/L (21-32); CHLORIDE LEVEL 109 MEQ/L (98-107); CREATININE FOR GFR 0.63 MG/DL (0.55-1.02); GLOMERULAR FILTRATION RATE > 60.0 (>60); GLUCOSE, FASTING 262 MG/DL (70-105); PHOSPHORUS LEVEL 2.4 MG/DL (2.5-4.9); POTASSIUM SERUM 4.3 MEQ/L (3.5-5.1); SODIUM LEVEL 139 MEQ/L (136-145); TOTAL PROTEIN 6.4 GM/DL (6.4-8.2)
[2017-04-10 16:00] VITALS: BP 114/74
[2017-04-10 20:00] VITALS: BP 100/64
[2017-04-10] MEDS: LEVEMIR (INSULIN DETEMIR) 1 UNITS/0.01ML SC SCH (21:20)
[2017-04-11] VITALS: BP 113/56
[2017-04-11] MEDS: D5W/0.45% SODIUM CHLORIDE 1,000 ML IV SCH ×4 (01:32→23:12)
[2017-04-11 06:32] LABS: BASO % 0.7 % (0.0-1.0); EOS # 0.2 10^3/uL (0.0-0.50); EOS % 2.8 % (0.0-3.0); IMMATURE GRANULOCYTE % 0.5 % (0-0); LYMPH # 1.9 10^3/uL (1.5-6.5); LYMPH % 32.1 % (24.0-44.0); MEAN CORPUSCULAR HEMOGLOBIN 31.5 pg (27.0-33.0); MEAN CORPUSCULAR HGB CONC 34.2 g/dl (32.0-36.5); MEAN CORPUSCULAR VOLUME 92.1 fl (80.0-96.0); MONO # 0.5 10^3/uL (0.0-0.8); MONO % 9.2 % (0.0-5.0); NEUTROPHILS # 3.2 10^3/uL (1.8-7.7); NEUTROPHILS % 54.7 % (36.0-66.0); PLATELET COUNT, AUTOMATED 238 10^3/uL (150-450); RED CELL DISTRIBUTION WIDTH 12.5 % (11.5-14.5); WHITE BLOOD COUNT 5.8 10^3/uL (4.0-10.0)
[2017-04-11 07:08] LABS: ALBUMIN 2.7 GM/DL (3.2-5.2); ALBUMIN/GLOBULIN RATIO 0.84 (1.00-1.93); ALKALINE PHOSPHATASE 51 U/L (45-117); ALT/SGPT 13 U/L (12-78); ANION GAP 5 MEQ/L (8-16); AST/SGOT 6 U/L (7-37); BILIRUBIN,TOTAL 0.5 MG/DL (0.2-1.0); BLOOD UREA NITROGEN 8 MG/DL (7-18); CALCIUM LEVEL 8.1 MG/DL (8.5-10.1); CARBON DIOXIDE LEVEL 26 MEQ/L (21-32); CHLORIDE LEVEL 109 MEQ/L (98-107); CREATININE FOR GFR 0.51 MG/DL (0.55-1.02); GLOMERULAR FILTRATION RATE > 60.0 (>60); GLUCOSE, FASTING 203 MG/DL (70-105); HCG, SERUM QUANTITATIVE 1200 MIU/ML; MAGNESIUM LEVEL 1.6 MG/DL (1.8-2.4); POTASSIUM SERUM 3.8 MEQ/L (3.5-5.1); SODIUM LEVEL 140 MEQ/L (136-145); TOTAL PROTEIN 5.9 GM/DL (6.4-8.2)
[2017-04-11 08:00] VITALS: BP 105/64
[2017-04-11] MEDS ORDERED: MAG SULF 1GM/100ML (MAG RUN) 1 GM in APPROPRIATE DILUENT 1 EA IV ONE (08:00)
[2017-04-11] MEDS: FAMOTIDINE 20 MG TAB PO SCH ×2 (08:18→20:55)
[2017-04-11] MEDS: HumaLOG INSULIN (NovoLOG) PER UNIT SC SCH ×4 (08:20→21:00)
[2017-04-11] MEDS: LEVEMIR (INSULIN DETEMIR) 1 UNITS/0.01ML SC SCH ×2 (08:20→20:55)
--- NOTE | 2017-04-11 10:49 | IPNPDOC ---
Text Note Date of Service The patient was seen on 04/11/17. NOTE Subjective: Patient is a 26-year-old female with a PMHx IDDM1, PCOS, Uterine Fibroids and Recent Positive test who presented to the ER with concerns of possible DKA. Presented with epigastric pain and nausea. Labs in ER indicated DKA with an elevated beta-hydroxybutyrate. Patient was admitted to ICU and started on an insulin drip. Blintze Roller was consulted and evaluated patient in ER for her positive test. Patient was seen and examined at the bedside. Feeling better. She stated she has been on a insulin Pen for 2 months due to she ran out of cartridges of her old insulin pump and she is in process getting a new pump, however she has paper work she has not completed before she can receive the new pump. She stated she checks her glucose several times a day, however she doesn't seems to be very concerned that her glucose was consistently above 300 at home or at work , she know that her number should be around 100s per patient. She came in to hospital because her glucose was 500s and she felt like she was having DKA, as she had experience with it in the past. She denies any fever/chill, chest pain, sob, abdominal pain, nausea, vomiting, diarrhea, constipation, blood in urine or stool. Denies any vaginal bleed. Denies any other current new complaints. Objective: Vitals (See below) General: Lying in bed, no acute distress, comfortable, AAOx3 HEENT: NC, AT CVS: RRR, +S1S2 Lungs: Fair air entry b/l, -w/r/r Abdomen: Soft, ND, NT Extremities: - Edema, - Calf tenderness Assessment and plan: s/p Abdominal pain, nausea and elevated glucose - likely 2/2 DKA - Clinically has resolution of abdominal pain and nausea - Patient has noted that she has recently changed her insulin regimen, has been poorly controlled - s/p Epigastric pain - Elevated beta hydroxybutyrate has improved - s/p IV fluid hydration and insulin drip; currently on insulin SQ (AC/HS) and long acting, Levemir 25 u bid - c/w consistent carbohydrate diet s/p AG acidosis, s/p Non AG Metabolic acidosis - s/p IV fluids; Urine AG negative; denied diarrhea DM1 - Advised patient to fill out paper work as soon as possible when she goes home so that she can be switched to her new insulin pump - c/w ISS and Levemir Recent positive test - 1st trimester US 04/09: 3mm sac-like structure in uterine endometrium may be early IUP; 5 weeks - hCG value not doubled; increased from 700s to 1200s - AGRICULTURE PROFESSOR on consult and for management of care Uterine fibroids PCOS Gastrointestinal prophylaxis - c/w Famotidine DVT prophylaxis - c/w SCDs Disposition - Possible DC tomorrow GME ATTESTATION My preceptor for this patient encounter was physically present in the building during the encounter and was fully available. As needed, all aspects of the patient interview, examination, medical decision making process, and medical care plan development were reviewed and approved by the preceptor. Preceptor is aware and concurs with the plan as stated in the body of this note and will attest to such by his/her cosignature. ATTENDING NOTE I, Pollo Atkinson, have both independently examined this patient as well as reviewed the documentation. I have discussed in detail with the resident the findings and plan of treatment as documented in the residents documentation. I will continue to follow the patient and offer further guidance to the patients care as necessary during this hospital stay. VS,Fishbone, I+O VS, Fishbone, I+O Laboratory Tests 04/10/17 12:16 Calcium Level 8.8, Phosphorus Level 2.4 L, Aspartate Amino Transf (AST/SGOT) 9, Alanine Aminotransferase (ALT/SGPT) 14, Alkaline Phosphatase 61, Total Bilirubin 0.6, Total Protein 6.4, Albumin 3.3 04/11/17 06:09 Calcium Level 8.1 L, Aspartate Amino Transf (AST/SGOT) 6 L, Alanine Aminotransferase (ALT/SGPT) 13, Alkaline Phosphatase 51, Total Bilirubin 0.5, Total Protein 5.9 L, Albumin 2.7 L, Red Blood Count 3.78 L, Mean Corpuscular Volume 92.1, Mean Corpuscular Hemoglobin 31.5, Mean Corpuscular Hemoglobin Concent 34.2, Red Cell Distribution Width 12.5, Neutrophils (%) (Auto) 54.7, Lymphocytes (%) (Auto) 32.1, Monocytes (%) (Auto) 9.2 H, Eosinophils (%) (Auto) 2.8, Basophils (%) (Auto) 0.7, Neutrophils # (Auto) 3.2, Lymphocytes # (Auto) 1.9, Monocytes # (Auto) 0.5, Eosinophils # (Auto) 0.2, Basophils # (Auto) 0.0 Vital Signs Date Time Temp Pulse Resp B/P (MAP) Pulse Ox O2 Delivery O2 Flow Rate FiO2 04/11/17 00:00 98.6 78 16 113/56 (75) 100 Room Air DAVID POLANCO DO Apr 11, 2017 10:49 POLLO ATKINSON MD Apr 11, 2017 12:07
--- NOTE | 2017-04-11 14:51 | IPNPDOC ---
Text Note Date of Service The patient was seen on 04/11/17. NOTE OBGYN consult update HCG this AM 1200. 2 days ago it was 794. Incr of 50% only, just barely adequate. Pt reports no VB/cramping and that medicine service is planning on d/c tomorrow AM a/p: Needs another HCG in 48 hrs, will order in [facility] to be done at [facility] this TUES with f/u WED in the clinic, likely US. Clinic RN or escrow clerk will call her tomorrow with appt time on WED. Sessions Kindra URIBE, I+O VSKindra I+O Laboratory Tests 04/11/17 06:09 Red Blood Count 3.78 L, Mean Corpuscular Volume 92.1, Mean Corpuscular Hemoglobin 31.5, Mean Corpuscular Hemoglobin Concent 34.2, Red Cell Distribution Width 12.5, Neutrophils (%) (Auto) 54.7, Lymphocytes (%) (Auto) 32.1, Monocytes (%) (Auto) 9.2 H, Eosinophils (%) (Auto) 2.8, Basophils (%) ( Auto) 0.7, Neutrophils # (Auto) 3.2, Lymphocytes # (Auto) 1.9, Monocytes # (Auto ) 0.5, Eosinophils # (Auto) 0.2, Basophils # (Auto) 0.0, Calcium Level 8.1 L, Aspartate Amino Transf (AST/SGOT) 6 L, Alanine Aminotransferase (ALT/SGPT) 13, Alkaline Phosphatase 51, Total Bilirubin 0.5, Total Protein 5.9 L, Albumin 2.7 L Vital Signs Date Time Temp Pulse Resp B/P (MAP) Pulse Ox O2 Delivery O2 Flow Rate FiO2 04/11/17 08:00 99.2 78 18 105/64 (78) 100 Room Air I&O- Last 24 Hours up to 6 AM 04/12/17 06:00 Intake Total 480 ml Output Total 1000 ml Balance -520 ml SESSIONS,AYANNA Tai MD Apr 11, 2017 14:51
[2017-04-11 16:00] VITALS: BP 110/68
[2017-04-11 20:00] VITALS: BP 107/64
[2017-04-12] VITALS: BP 107/62
[2017-04-12 04:15] VITALS: BP 102/57
[2017-04-12] MEDS: D5W/0.45% SODIUM CHLORIDE 1,000 ML IV SCH (05:19)
[2017-04-12 07:31] LABS: BASO % 0.6 % (0.0-1.0); EOS # 0.2 10^3/uL (0.0-0.50); EOS % 3.1 % (0.0-3.0); IMMATURE GRANULOCYTE % 0.4 % (0-0); LYMPH # 1.7 10^3/uL (1.5-6.5); LYMPH % 32.4 % (24.0-44.0); MEAN CORPUSCULAR HEMOGLOBIN 30.9 pg (27.0-33.0); MEAN CORPUSCULAR HGB CONC 33.5 g/dl (32.0-36.5); MEAN CORPUSCULAR VOLUME 92.2 fl (80.0-96.0); MONO # 0.5 10^3/uL (0.0-0.8); MONO % 9.4 % (0.0-5.0); NEUTROPHILS # 2.8 10^3/uL (1.8-7.7); NEUTROPHILS % 54.1 % (36.0-66.0); PLATELET COUNT, AUTOMATED 227 10^3/uL (150-450); RED CELL DISTRIBUTION WIDTH 12.4 % (11.5-14.5); WHITE BLOOD COUNT 5.2 10^3/uL (4.0-10.0)
[2017-04-12 08:00] VITALS: BP 109/59
[2017-04-12 08:05] LABS: ALBUMIN 2.7 GM/DL (3.2-5.2); ALKALINE PHOSPHATASE 51 U/L (45-117); ALT/SGPT 13 U/L (12-78); ANION GAP 7 MEQ/L (8-16); AST/SGOT 8 U/L (7-37); BILIRUBIN,TOTAL 0.4 MG/DL (0.2-1.0); BLOOD UREA NITROGEN 10 MG/DL (7-18); CALCIUM LEVEL 8.3 MG/DL (8.5-10.1); CARBON DIOXIDE LEVEL 25 MEQ/L (21-32); CHLORIDE LEVEL 108 MEQ/L (98-107); CREATININE FOR GFR 0.52 MG/DL (0.55-1.02); GLOMERULAR FILTRATION RATE > 60.0 (>60); GLUCOSE, FASTING 187 MG/DL (70-105); MAGNESIUM LEVEL 1.7 MG/DL (1.8-2.4); POTASSIUM SERUM 3.9 MEQ/L (3.5-5.1); SODIUM LEVEL 140 MEQ/L (136-145); TOTAL PROTEIN 5.4 GM/DL (6.4-8.2)
[2017-04-12] MEDS: FAMOTIDINE 20 MG TAB PO SCH (08:16)
[2017-04-12] MEDS: HumaLOG INSULIN (NovoLOG) PER UNIT SC SCH (08:16)
[2017-04-12] MEDS: LEVEMIR (INSULIN DETEMIR) 1 UNITS/0.01ML SC SCH (08:17)
[2017-04-12] MEDS ORDERED: LANTINJ4 SC (09:00)
--- NOTE | 2017-04-12 13:42 | DSES ---
DATE OF ADMISSION: 04/09/2017 DATE OF DISCHARGE: 04/12/2017 ATTENDING PHYSICIAN: Pollo Styles MD PRIMARY CARE PHYSICIAN: Marlon Hassan REFERRING PHYSICIAN: None. CONSULTING PHYSICIAN: Dr. Sotelo CONDITION ON DISCHARGE: Stable. FINAL DIAGNOSIS: Status post diabetic ketoacidosis. PROCEDURES: None. HISTORY OF PRESENT ILLNESS: The patient is a 26-year-old female with a past medical history of insulin-dependent diabetes mellitus type 1, polycystic ovarian syndrome, uterine fibroids, and recent positive test, who presented to the emergency room with concerns of possible DKA. She presented with epigastric pain and nausea. Laboratories in the emergency room indicated DKA with elevated beta hydroxybutyrate. The patient was admitted to intensive care unit (ICU) and started on insulin drip. THREAD SPOOLER was consulted and evaluated the patient in the emergency room for positive test. HOSPITAL COURSE: Status post abdominal pain, nausea and elevated glucose, likely secondary to DKA. Clinically has resolution of her abdominal pain and nausea. The patient has noted that she has recently changed her insulin regimen and has been poorly controlled as an outpatient. She is status post epigastric pain, elevated beta hydroxybutyrate has improved. She is status post IV fluid hydration and insulin drip. Currently on insulin subcutaneously and has been put on long-acting insulin with Levemir 25 units twice a day. Continue with consistent carbohydrate diet. Status post non anion gap metabolic acidosis. Corrected with IV fluids. Urine anion gap has been negative; however, the patient denies any diarrhea. Continue insulin sliding scale and Levemir. Recent positive test. First trimester ultrasound on 04/09/2017 revealed a 3 mm sac-like structure in the uterine endometrium, which may be consistent with early intrauterine of 5 weeks. HCG has been followed for 2 days and has increased from 700 to 1200. THREAD SPOOLER has been following and will be managing the patient as an outpatient. Uterine fibroids. Polycystic ovarian syndrome. Gastrointestinal prophylaxis. Continue with famotidine. Deep vein thrombosis (DVT) prophylaxis. Continue with sequential compression device (SCD). DISCHARGE MEDICATIONS: The patient is being discharged to home with the following medications: - hair/skin/nail one capsule by mouth daily - insulin Aspart one dose to be taken as directed - multivitamin one tablet by mouth daily - insulin glargine 25 units subcutaneous twice a day DISCHARGE INSTRUCTIONS: The patient has been advised to followup with primary care provider, as well as THREAD SPOOLER, as well as [facility] within the next 7 days. The patient has been advised to remain compliant with treatment plan and medications and return to the emergency room if they experience any problems. Time spent on discharge: Greater than 35 minutes.
== END 2017-04-12 12:05 | disposition home or self-care (01) | DRG 781 ==
LOC: M ED 08:40 → M ED INP 13:33 → M ICU 14:51 → M PED 04-10 11:39
PROVIDERS: ADMIT Internal Medicine; ATTEND Internal Medicine
DX: O24.011 Pre-existing type 1 diabetes mellitus, in pregnancy, first trimester (principal); E10.10 Type 1 diabetes mellitus with ketoacidosis without coma; Z79.4 Long term (current) use of insulin; E28.2 Polycystic ovarian syndrome; D25.9 Leiomyoma of uterus, unspecified; O34.11 Maternal care for benign tumor of corpus uteri, first trimester; O99.281 Endocrine, nutritional and metabolic diseases complicating pregnancy, first trimester

== ENCOUNTER 2017-05-07 20:09 | Emergency (ER) | payer OTHER ==
[~2017-05-07] VITALS: Ht 170.2 cm; Wt 63.6 kg
[~2017-05-07 20:09] MED LIST changes: +BIOT1CAP2 PO; +HAIR1CAP2 PO; +PREN1TAB11 PO
[2017-05-07] MEDS ORDERED: NS 1,000 ML IV ONE (20:30)
[2017-05-07 21:14] LABS: BASO # 0.1 10^3/uL (0.0-0.2); BASO % 0.8 % (0.0-1.0); EOS # 0.2 10^3/uL (0.0-0.50); EOS % 1.9 % (0.0-3.0); IMMATURE GRANULOCYTE % 0.5 % (0-0); LYMPH # 2.3 10^3/uL (1.5-6.5); LYMPH % 29.3 % (24.0-44.0); MEAN CORPUSCULAR HEMOGLOBIN 31.6 pg (27.0-33.0); MEAN CORPUSCULAR HGB CONC 33.6 g/dl (32.0-36.5); MEAN CORPUSCULAR VOLUME 94.2 fl (80.0-96.0); MONO # 0.6 10^3/uL (0.0-0.8); MONO % 7.2 % (0.0-5.0); NEUTROPHILS # 4.8 10^3/uL (1.8-7.7); NEUTROPHILS % 60.3 % (36.0-66.0); PLATELET COUNT, AUTOMATED 311 10^3/uL (150-450); RED CELL DISTRIBUTION WIDTH 11.9 % (11.5-14.5); WHITE BLOOD COUNT 7.9 10^3/uL (4.0-10.0)
--- NOTE | 2017-05-07 21:40 | REPUSA ---
Clinical history: bleeding. Findings: Real-time transabdominal ultrasound images of the pelvis were obtained. An anteverted uteru s is noted, measuring 9.4 x 5.5 x 7.3 cm. The uterus demonstrates normal echotexture and echogenicity . There is an intrauterine gestation. The mean sac diameter measures 28.8 mm. The pole measures 15.6 mm . No cardiac activity is seen at this time. The right ovary measures 3.3 x 2.5 x 2.5 cm. The left ovary measures 3.4 x 1.8 x 1.3 cm. No adnexal masses are seen. Color Doppler flow is seen withi n both ovaries. There is no evidence of free fluid. Impression: Intrauterine gestation measuring 8 weeks. No cardiac activity is identified. Findings are suspicious for a missed . Follow-up is recommended as clinically indicated.
[2017-05-07 21:56] LABS: ANION GAP 8 MEQ/L (8-16); BLOOD UREA NITROGEN 10 MG/DL (7-18); CALCIUM LEVEL 8.9 MG/DL (8.5-10.1); CARBON DIOXIDE LEVEL 27 MEQ/L (21-32); CHLORIDE LEVEL 101 MEQ/L (98-107); CREATININE FOR GFR 0.72 MG/DL (0.55-1.02); GLOMERULAR FILTRATION RATE > 60.0 (>60); GLUCOSE, FASTING 312 MG/DL (70-105); HCG, SERUM QUANTITATIVE 24961 MIU/ML; POTASSIUM SERUM 3.7 MEQ/L (3.5-5.1); SODIUM LEVEL 136 MEQ/L (136-145)
[2017-05-07 22:31] VITALS: BP 135/70
== END 2017-05-07 22:33 | disposition home or self-care (01) ==
LOC: M ED 20:09
DX: O02.1 Missed abortion (principal); O24.011 Pre-existing type 1 diabetes mellitus, in pregnancy, first trimester; E10.65 Type 1 diabetes mellitus with hyperglycemia; O99.53 Diseases of the respiratory system complicating the puerperium; J02.9 Acute pharyngitis, unspecified; Z3A.08 8 weeks gestation of pregnancy

== ENCOUNTER 2017-05-13 06:05 | Day surgery (SDC) | payer OTHER ==
[~2017-05-13] VITALS: Ht 170.2 cm; Wt 63.4 kg
[2017-05-13] MEDS ORDERED: ACETAMINOPHEN 650 MG SUPP PR ONE (06:15)
[2017-05-13] MEDS ORDERED: LR 1,000 ML IV ONE (06:15)
[2017-05-13] MEDS ORDERED: D5W 1,000 ML IV SCH (06:15)
[2017-05-13 06:37] LABS: MEAN CORPUSCULAR HEMOGLOBIN 31.4 pg (27.0-33.0); MEAN CORPUSCULAR HGB CONC 35.1 g/dl (32.0-36.5); MEAN CORPUSCULAR VOLUME 89.5 fl (80.0-96.0); PLATELET COUNT, AUTOMATED 279 10^3/uL (150-450); RED CELL DISTRIBUTION WIDTH 11.8 % (11.5-14.5); WHITE BLOOD COUNT 6.2 10^3/uL (4.0-10.0)
[2017-05-13 07:10] LABS: ANION GAP 9 MEQ/L (8-16); BLOOD UREA NITROGEN 15 MG/DL (7-18); CARBON DIOXIDE LEVEL 24 MEQ/L (21-32); CHLORIDE LEVEL 104 MEQ/L (98-107); CREATININE FOR GFR 0.58 MG/DL (0.55-1.02); GLOMERULAR FILTRATION RATE > 60.0 (>60); GLUCOSE, FASTING 207 MG/DL (70-105); HCG, SERUM QUANTITATIVE 12065 MIU/ML; POTASSIUM SERUM 4.2 MEQ/L (3.5-5.1); SODIUM LEVEL 137 MEQ/L (136-145)
[2017-05-13] MEDS ORDERED: LIDOCAINE 2% INJ 100 MG/5 ML SDV (FOR ANES.) As Ordered ONE (07:17)
[2017-05-13] MEDS ORDERED: fentaNYL 100 MCG/2 ML INJECTION (J3010) As Ordered ONE (07:17)
[2017-05-13] MEDS ORDERED: MIDAZOLAM INJ 2 MG/2 ML VIAL (J2250) As Ordered ONE (07:17)
[2017-05-13] MEDS ORDERED: PROPOFOL 200 MG/20 ML VIAL As Ordered ONE (07:17)
[2017-05-13] MEDS ORDERED: ONDANSETRON 4MG/2ML VIAL (J2405) As Ordered ONE (07:17)
[2017-05-13] MEDS ORDERED: ACETAMINOPHEN 650 MG SUPP As Ordered ONE (07:37)
[2017-05-13] MEDS ORDERED: METOCLOPRAMIDE INJ 10MG/2ML VIAL (J2765) As Ordered ONE (07:39)
[2017-05-13] MEDS ORDERED: KETOROLAC 60 MG/2 ML VIAL (J1885) As Ordered ONE (07:39)
[2017-05-13] MEDS ORDERED: OXYTOCIN INJ 10 UNITS/ML VIAL (J2590) As Ordered ONE (07:50)
[2017-05-13] MEDS ORDERED: fentaNYL 100 MCG/2 ML INJECTION (J3010) IV PRN (08:30)
[2017-05-13] MEDS ORDERED: PERCOCET 5MG/325MG TAB PO PRN (08:30)
[2017-05-13 09:40] VITALS: BP 96/55
[2017-05-13] MEDS ORDERED: KETOROLAC 30 MG/ML VIAL (J1885) IV SCH (14:00)
--- NOTE | 2017-05-21 10:34 | RO ---
DATE OF PROCEDURE: 05/13/2017 PREOPERATIVE DIAGNOSIS: Missed . POSTOPERATIVE DIAGNOSIS: Missed OPERATION PROPOSED: Suction curettage. OPERATION PERFORMED: Suction curettage. SURGEON: Dr. Karlo Anderson. TAKER OFF HEMP FIBER: ANESTHESIA: General. ESTIMATED BLOOD LOSS: Less than 100 mL. After adequate anesthesia and adequate time-out, patient of lithotomy position. Sequentials on board. No antibiotics required. Weighted speculum in the vaginal. We drained the bladder for 100 mL of clear urine. Single-tooth tenaculum on the anterior lip of the cervix. Uterus sounded up to 8.5 cm already dilated to a Gisela 9. Curved suction curette applied. Curettage of the cavity is smooth. Uterus was placed in anatomical position, well contracted under Pitocin. With instrument and pad count correct, the patient was sent to recovery in good condition. She is Rh positive, does not require RhoGAM.
== END 2017-05-13 10:01 | disposition home or self-care (01) ==
LOC: M SDC 06:05
PROVIDERS: ATTEND Obstetrics & Gynecology
DX: O02.1 Missed abortion (principal); E10.9 Type 1 diabetes mellitus without complications; E28.2 Polycystic ovarian syndrome; K21.9 Gastro-esophageal reflux disease without esophagitis; R56.9 Unspecified convulsions; Z87.442 Personal history of urinary calculi; Z79.4 Long term (current) use of insulin
CPT/HCPCS: 36415; 59820; 80048; 83036; 84702; 85027; 88305; J1885; J2250; J2405; J2590; J2765; J3010

== ENCOUNTER 2017-06-28 12:26 | Emergency (ER) | payer OTHER ==
[2017-06-28] MEDS: KETOROLAC 30 MG/ML VIAL (J1885) IM (16:57)
== END 2017-06-28 17:48 | disposition home or self-care (01) ==
LOC: M ED 12:26
DX: M94.0 Chondrocostal junction syndrome [Tietze] (principal); R07.89 Other chest pain; E10.9 Type 1 diabetes mellitus without complications; Z87.442 Personal history of urinary calculi; M43.10 Spondylolisthesis, site unspecified; Z96.0 Presence of urogenital implants; Z79.4 Long term (current) use of insulin; Z88.8 Allergy status to other drugs, medicaments and biological substances
CPT/HCPCS: J1885

== ENCOUNTER 2017-12-09 14:35 | Emergency (ER) | payer OTHER ==
[2017-12-09] MEDS: NS 1,000 ML IV (16:01)
[2017-12-09] MEDS: ONDANSETRON 4MG/2ML VIAL (J2405) IV (16:01)
[2017-12-09] MEDS: PANTOPRAZOLE 40MG INJ (PROTONIX) (C9113) IV (16:01)
[2017-12-09 16:16] LABS: BASO % 0.6 % (0.0-1.0); EOS # 0.1 10^3/uL (0.0-0.50); EOS % 0.7 % (0.0-3.0); HEMATOCRIT 40.4 % (36.0-47.0); HEMOGLOBIN 13.8 g/dl (12.0-15.5); IMMATURE GRANULOCYTE % 0.1 % (0-3.0); LYMPH # 1.4 10^3/uL (1.5-6.5); LYMPH % 20.1 % (24.0-44.0); MEAN CORPUSCULAR HEMOGLOBIN 31.2 pg (27.0-33.0); MEAN CORPUSCULAR HGB CONC 34.2 g/dl (32.0-36.5); MEAN CORPUSCULAR VOLUME 91.2 fl (80.0-96.0); MONO # 0.4 10^3/uL (0.0-0.8); MONO % 5.6 % (0.0-5.0); NEUTROPHILS % 72.9 % (36.0-66.0); PLATELET COUNT, AUTOMATED 278 10^3/uL (150-450); RED BLOOD COUNT 4.43 10^6/uL (4.00-5.40); RED CELL DISTRIBUTION WIDTH 11.9 % (11.5-14.5); WHITE BLOOD COUNT 6.8 10^3/uL (4.0-10.0)
[2017-12-09 16:18] LABS: VENOUS BASE EXCESS -2.4 (-2.0-2.0); VENOUS O2 SATURATION 70.8 % (60.0-80.0); VENOUS PARTIAL PRESSURE CO2 47.4 mmHg (38.0-50.0); VENOUS PARTIAL PRESSURE O2 38.5 mmHg (30.0-50.0); VENOUS PH 7.323 UNITS (7.330-7.430); VENOUS STANDARD HCO3 21.9 MEQ/L; VENOUS TOTAL CO2 25.5 MEQ/L (24.0-28.0)
[2017-12-09 16:40] LABS: CONTROL LINE HCG INT CTR LINE PRESENT; HCG, SERUM QUALITATIVE NEGATIVE (NEGATIVE)
[2017-12-09 16:41] LABS: ACETONE/KETONE 23.12 MG/DL (<2.81); ALBUMIN 3.9 GM/DL (3.2-5.2); ALBUMIN/GLOBULIN RATIO 1.08 (1.00-1.93); ALKALINE PHOSPHATASE 60 U/L (45-117); ALT/SGPT 18 U/L (12-78); ANION GAP 9 MEQ/L (8-16); AST/SGOT 10 U/L (7-37); BILIRUBIN,DIRECT 0.2 MG/DL (0.0-0.2); BILIRUBIN,TOTAL 0.7 MG/DL (0.2-1.0); BLOOD UREA NITROGEN 15 MG/DL (7-18); CALCIUM LEVEL 9.1 MG/DL (8.5-10.1); CARBON DIOXIDE LEVEL 25 MEQ/L (21-32); CHLORIDE LEVEL 105 MEQ/L (98-107); CPK CREATINE PHOSPHOKINASE 44 U/L (26-192); GLUCOSE, FASTING 284 MG/DL (70-100); LIPASE 76 U/L (73-393); MAGNESIUM LEVEL 2.1 MG/DL (1.8-2.4); POTASSIUM SERUM 4.5 MEQ/L (3.5-5.1); SODIUM LEVEL 139 MEQ/L (136-145); TOTAL PROTEIN 7.5 GM/DL (6.4-8.2); TROPONIN I < 0.02 NG/ML (< 0.10)
[2017-12-09 16:47] LABS: CK-MB VALUE MASS < 1.0 NG/ML (<3.6); MB/CK RELATIVE INDEX 2.27 (< OR =4)
[2017-12-09 16:49] LABS: CREATININE FOR GFR 0.81 MG/DL (0.55-1.30); GLOMERULAR FILTRATION RATE > 60.0 (>60)
[2017-12-09 18:04] LABS: KETONE, URINE AUTO RFX 2+ mg/dL (NEGATIVE); MUCUS, URINE RFX SMALL (NEGATIVE); NITRITE, URINE AUTO RFX NEGATIVE (NEGATIVE); RBC, URINE AUTO RFX 0 /HPF (0-3); SQUAM EPITHELIAL CELL UR AURFX 0 /HPF (0-6); WBC, URINE AUTO RFX 2 /HPF (0-3)
[2017-12-09 18:07] LABS: LEUKOCYTE ESTERASE UR AUTO RFX TRACE (NEGATIVE)
[2017-12-09 18:23] LABS: BEDSIDE GLUCOSE 174 MG/DL (70-105)
[2017-12-10 10:42] LABS: BEDSIDE GLUCOSE 328 MG/DL (70-105)
== END 2017-12-09 18:47 | disposition home or self-care (01) ==
LOC: M ED 14:35
DX: E10.65 Type 1 diabetes mellitus with hyperglycemia (principal); K52.9 Noninfective gastroenteritis and colitis, unspecified; G43.909 Migraine, unspecified, not intractable, without status migrainosus; Z87.19 Personal history of other diseases of the digestive system; Z86.39 Personal history of other endocrine, nutritional and metabolic disease
CPT/HCPCS: C9113

== ENCOUNTER 2017-12-09 23:10 | Emergency (ER) | payer OTHER ==
[2017-12-10] MEDS: NS 1,000 ML IV (02:45)
[2017-12-10 02:57] LABS: BASO # 0.1 10^3/uL (0.0-0.2); BASO % 0.9 % (0.0-1.0); EOS # 0.1 10^3/uL (0.0-0.50); EOS % 2.2 % (0.0-3.0); HEMATOCRIT 35.6 % (36.0-47.0); HEMOGLOBIN 12.2 g/dl (12.0-15.5); IMMATURE GRANULOCYTE % 0.2 % (0-3.0); LYMPH # 2.4 10^3/uL (1.5-6.5); LYMPH % 42.5 % (24.0-44.0); MEAN CORPUSCULAR HEMOGLOBIN 31.8 pg (27.0-33.0); MEAN CORPUSCULAR HGB CONC 34.3 g/dl (32.0-36.5); MEAN CORPUSCULAR VOLUME 92.7 fl (80.0-96.0); MONO # 0.4 10^3/uL (0.0-0.8); MONO % 7.7 % (0.0-5.0); NEUTROPHILS # 2.6 10^3/uL (1.8-7.7); NEUTROPHILS % 46.5 % (36.0-66.0); PLATELET COUNT, AUTOMATED 239 10^3/uL (150-450); RED BLOOD COUNT 3.84 10^6/uL (4.00-5.40); RED CELL DISTRIBUTION WIDTH 11.9 % (11.5-14.5); WHITE BLOOD COUNT 5.6 10^3/uL (4.0-10.0)
[2017-12-10 03:14] LABS: CONTROL LINE HCG INT CTR LINE PRESENT; HCG, SERUM QUALITATIVE NEGATIVE (NEGATIVE)
[2017-12-10 03:24] LABS: ALBUMIN 3.2 GM/DL (3.2-5.2); ALBUMIN/GLOBULIN RATIO 1.07 (1.00-1.93); ALKALINE PHOSPHATASE 62 U/L (45-117); ALT/SGPT 18 U/L (12-78); ANION GAP 10 MEQ/L (8-16); AST/SGOT 20 U/L (7-37); BILIRUBIN,DIRECT < 0.1 MG/DL (0.0-0.2); BILIRUBIN,TOTAL 0.4 MG/DL (0.2-1.0); BLOOD UREA NITROGEN 16 MG/DL (7-18); CALCIUM LEVEL 8.1 MG/DL (8.5-10.1); CARBON DIOXIDE LEVEL 25 MEQ/L (21-32); CHLORIDE LEVEL 108 MEQ/L (98-107); CREATININE FOR GFR 0.73 MG/DL (0.55-1.30); GLOMERULAR FILTRATION RATE > 60.0 (>60); GLUCOSE, FASTING 195 MG/DL (70-100); POTASSIUM SERUM 4.2 MEQ/L (3.5-5.1); SODIUM LEVEL 143 MEQ/L (136-145); TOTAL PROTEIN 6.2 GM/DL (6.4-8.2)
[2017-12-10 10:42] LABS: BEDSIDE GLUCOSE 185 MG/DL (70-105)
== END 2017-12-10 04:49 | disposition home or self-care (01) ==
LOC: M ED 23:10
DX: E10.65 Type 1 diabetes mellitus with hyperglycemia (principal); R19.7 Diarrhea, unspecified; Z87.442 Personal history of urinary calculi; Z79.4 Long term (current) use of insulin; Z88.8 Allergy status to other drugs, medicaments and biological substances
CPT/HCPCS: 80076

== ENCOUNTER 2018-07-18 15:15 | Emergency (ER) | payer OTHER ==
[~2018-07-18] VITALS: Ht 170.2 cm; Wt 59.1 kg
[~2018-07-18 15:15] MED LIST changes: +NAPR-50 PO; +TRAZ-160 OR; -TRAZ50TA11 OR; +TRINTAB PO; -TRINTAB3 PO; -ZOFR20TA PO; +ZOFR4TAB14 PO; +ZOFR4TAB16 PO
[2018-07-18] MEDS ORDERED: SERT-138 (15:24)
[2018-07-18] MEDS ORDERED: CEFD1CAP8 PO (18:01)
[2018-07-18] MEDS ORDERED: BENZ200C70 PO (18:02)
[2018-07-18 18:03] VITALS: BP 106/72
== END 2018-07-18 18:09 | disposition home or self-care (01) ==
LOC: M ED 15:15
DX: N30.00 Acute cystitis without hematuria (principal); J06.9 Acute upper respiratory infection, unspecified; E11.9 Type 2 diabetes mellitus without complications; Z88.8 Allergy status to other drugs, medicaments and biological substances; Z91.011 Allergy to milk products; Z79.899 Other long term (current) drug therapy; Z79.4 Long term (current) use of insulin

== ENCOUNTER 2019-05-19 22:22 | Emergency (ER) | payer OTHER ==
[~2019-05-19] VITALS: Ht 170.2 cm; Wt 59.1 kg
[~2019-05-19 22:22] MED LIST changes: -/INSUREG SC; +BENZ200C70 PO; +CEFD1CAP8 PO; +IBUP600T42 PO; -IBUP60TA PO; -NAPR-50 PO; +NAPR-837 PO; +NOVO1INJ2 SC; +ONDA-228 PO; +SERT-138; -TRAZ-160 OR; +TRAZ-252 OR; -ZOFR4TAB3 PO
[2019-05-19] MEDS ORDERED: PHEN-501 (22:37)
[2019-05-19] MEDS ORDERED: SULF1TAB93 (22:37)
[2019-05-19] MEDS ORDERED: cefTRIAXone SOD 250 MG VIAL (J0696) IM ONE (23:45)
[2019-05-19] MEDS ORDERED: AZITHROMYCIN 250 MG TAB PO ONE (23:45)
[2019-05-20 00:02] LABS: BASO # 0.1 10^3/uL (0.0-0.2); BASO % 0.7 % (0.0-1.0); EOS # 0.1 10^3/uL (0.0-0.5); EOS % 0.9 % (0.0-3.0); LYMPH % 28.7 % (24.0-44.0); MEAN CORPUSCULAR HEMOGLOBIN 30.9 pg (27.0-33.0); MEAN CORPUSCULAR HGB CONC 33.3 g/dl (32.0-36.5); MEAN CORPUSCULAR VOLUME 92.6 fl (80.0-96.0); MONO # 0.4 10^3/uL (0.0-0.8); MONO % 5.8 % (0.0-5.0); NEUTROPHILS # 4.4 10^3/uL (1.5-8.5); NEUTROPHILS % 63.5 % (36.0-66.0); PLATELET COUNT, AUTOMATED 282 10^3/uL (150-450); RED BLOOD COUNT 4.86 10^6/uL (4.00-5.40); WHITE BLOOD COUNT 6.9 10^3/uL (4.0-10.0)
[2019-05-20 00:39] LABS: ALBUMIN 3.9 GM/DL (3.2-5.2); ALT/SGPT 19 U/L (12-78); BLOOD UREA NITROGEN 12 MG/DL (7-18); CALCIUM LEVEL 9.3 MG/DL (8.5-10.1); CARBON DIOXIDE LEVEL 24 MEQ/L (21-32); CHLORIDE LEVEL 104 MEQ/L (98-107); CREATININE FOR GFR 0.75 MG/DL (0.55-1.30); GLOMERULAR FILTRATION RATE > 60.0 (>60); GLUCOSE, FASTING 176 MG/DL (70-100); POTASSIUM SERUM 4.1 MEQ/L (3.5-5.1); SODIUM LEVEL 138 MEQ/L (136-145); TOTAL PROTEIN 7.7 GM/DL (6.4-8.2)
[2019-05-20] MEDS ORDERED: LIDOCAINE 1% SDV 5 ML VIAL As Ordered ONE (00:47)
[2019-05-20] MEDS ORDERED: MUPI30CR TOP (01:50)
[2019-05-20 01:56] VITALS: BP 136/75
[2019-05-22 09:39] LABS: HEPATITIS B SURFACE ANTIBODY NEGATIVE (POSITIVE)
[2019-05-22 10:18] LABS: HEPATITIS C VIRUS ABY INDEX 0.2 INDEX (<0.8)
[2019-05-22 10:19] LABS: HIV 1&2 SCREEN CENTAUR NEGATIVE (NEGATIVE)
[2019-05-22 10:45] LABS: HEPATITIS B SURFACE ANTIGEN NEGATIVE (NEGATIVE)
== END 2019-05-20 02:05 | disposition home or self-care (01) ==
LOC: M ED 22:22
DX: S30.814A Abrasion of vagina and vulva, initial encounter (principal); T74.21XA Adult sexual abuse, confirmed, initial encounter; R35.0 Frequency of micturition; E10.9 Type 1 diabetes mellitus without complications; K21.9 Gastro-esophageal reflux disease without esophagitis; Z87.42 Personal history of other diseases of the female genital tract; Z87.442 Personal history of urinary calculi; Z91.011 Allergy to milk products; Z88.2 Allergy status to sulfonamides; Z79.4 Long term (current) use of insulin; Z79.899 Other long term (current) drug therapy
CPT/HCPCS: 80053; 85025; 86706; 86780; 86803; 87210; 87340; 87389; 96372; 99283; J0696

== ENCOUNTER 2019-09-25 10:34 | Emergency (ER) | payer OTHER ==
[~2019-09-25] VITALS: Ht 170.2 cm; Wt 61.4 kg
[~2019-09-25 10:34] MED LIST changes: +MUPI30CR TOP; +ONDA-83 PO; +ONDA4INJ4 PO; -ONDA4INJ48 PO; -ONDA4TAB5 PO; +ONDA8TAB10 PO; -ONDA8TAB7 PO; +PHEN-501; +SULF1TAB93
[2019-09-25] MEDS ORDERED: ONDANSETRON 4MG/2ML VIAL IV ONE (11:15)
[2019-09-25] MEDS ORDERED: NS 1,000 ML IV ONE (11:15)
[2019-09-25] MEDS ORDERED: KETOROLAC 30 MG/ML 1ML VIAL IV ONE (11:15)
[2019-09-25 11:42] LABS: BASO # 0.1 10^3/uL (0.0-0.2); BASO % 0.9 % (0.0-1.0); EOS # 0.1 10^3/uL (0.0-0.5); EOS % 1.6 % (0.0-3.0); HEMATOCRIT 41.7 % (36.0-47.0); HEMOGLOBIN 13.9 g/dl (12.0-15.5); LYMPH # 1.3 10^3/uL (1.5-5.0); MEAN CORPUSCULAR HEMOGLOBIN 31.1 pg (27.0-33.0); MEAN CORPUSCULAR HGB CONC 33.3 g/dl (32.0-36.5); MEAN CORPUSCULAR VOLUME 93.3 fl (80.0-96.0); MONO # 0.4 10^3/uL (0.0-0.8); MONO % 7.2 % (0.0-5.0); NEUTROPHILS # 3.8 10^3/uL (1.5-8.5); NEUTROPHILS % 67.1 % (36.0-66.0); PLATELET COUNT, AUTOMATED 292 10^3/uL (150-450); RED BLOOD COUNT 4.47 10^6/uL (4.00-5.40); WHITE BLOOD COUNT 5.7 10^3/uL (4.0-10.0)
[2019-09-25] MEDS ORDERED: SERT-138 PO (11:44)
[2019-09-25] MEDS ORDERED: INSUH10VL SC (11:44)
[2019-09-25 12:12] LABS: ALBUMIN 3.7 GM/DL (3.2-5.2); ALT/SGPT 19 U/L (12-78); BILIRUBIN,DIRECT 0.3 MG/DL (0.0-0.2); BLOOD UREA NITROGEN 15 MG/DL (7-18); CARBON DIOXIDE LEVEL 28 MEQ/L (21-32); CHLORIDE LEVEL 104 MEQ/L (98-107); CREATININE FOR GFR 0.92 MG/DL (0.55-1.30); GLOMERULAR FILTRATION RATE > 60.0 (>60); GLUCOSE, FASTING 258 MG/DL (70-100); LIPASE 77 U/L (73-393); SODIUM LEVEL 136 MEQ/L (136-145); TOTAL PROTEIN 7.4 GM/DL (6.4-8.2)
[2019-09-25] MEDS ORDERED: ISOVUE-370 76% 100ML VIAL As Ordered ONE (13:51)
[2019-09-25 14:35] VITALS: BP 107/63
--- NOTE | 2019-09-25 14:48 | REP ---
PELVIC ULTRASOUND: Real-time sonographic evaluation of pelvis performed utilizing transabdominal technique. Urinary bladder is collapsed. Uterus measures 7.6 x 4.1 x 5.4 cm. Endometrial thickness is approximately 15 mm. There is no endometrial fluid collection. Ovaries appear normal in size and echotexture. Right ovary measures 3.5 x 2.7 x 3.0 cm and left ovary 3.0 x 1.7 x 2.9 cm. There is no adnexal mass or free fluid. There is no evidence of ovarian torsion bilaterally with duplex Doppler evaluation. IMPRESSION: Negative pelvic ultrasound. No evidence of cyst, free fluid, or torsion. Electronically Signed by Feroz Blakely MD 09/26/2019 10:10 A
[2019-09-25] MEDS ORDERED: MACR100C43 PO (15:26)
--- NOTE | 2019-09-25 23:23 | REP ---
CT ABDOMEN AND PELVIS WITH IV CONTRAST: TECHNIQUE: Axial contrast enhanced images from the lung bases to the pubic symphysis using 100 mL Isovue 370 intravenous contrast material with multiplanar reformations. Visualized lung bases are clear. The liver, spleen, adrenals, pancreas, and kidneys appear unremarkable. There is no hydronephrosis. Gallbladder is collapsed. I do not see significant biliary dilatation. There is no abdominal aortic aneurysm. I see no adenopathy. There is no free air. There is no bowel wall thickening. The appendix is normal. No pelvic mass is seen. There is mild free fluid in the pelvis. Urinary bladder is mildly distended and appears unremarkable. Note is made of spondylolysis of L5 with mild anterior grade 1 spondylolisthesis of L5 on S1. IMPRESSION: Mild free fluid in the pelvis. No evidence of appendicitis or other intra-abdominal acute abnormality. Incidental note is made of spondylolysis of L5 with mild anterior grade 1 spondylolisthesis of L5 on S1. Electronically Signed by Feroz Blakely MD 09/26/2019 10:29 A
== END 2019-09-25 16:42 | disposition home or self-care (01) ==
LOC: M ED 10:34
DX: N39.0 Urinary tract infection, site not specified (principal); E10.9 Type 1 diabetes mellitus without complications; E28.2 Polycystic ovarian syndrome; Z87.42 Personal history of other diseases of the female genital tract; Z88.8 Allergy status to other drugs, medicaments and biological substances; Z79.4 Long term (current) use of insulin
CPT/HCPCS: 74177; 76856; 80048; 80076; 81001; 83690; 84702; 85025; 87086; 93976; 96361; 96374; 96375; 99284; J1885; J2405; Q9967

== ENCOUNTER → 2019-12-08 | Outpatient (REF) | payer OTHER ==
[~2019-12-08] MED LIST changes: +EXCETAB33 PO; +SERT-138 PO
[2019-12-08 21:43] LABS: CHLAMYDIA DNA AMPLIFICATION NEGATIVE (NEGATIVE); GC DNA AMPLIFICATION NEGATIVE (NEGATIVE)
[2019-12-11 13:46] LABS: HEPATITIS A ANTIBODY IGM NEGATIVE (NEGATIVE); HEPATITIS B CORE ANTIBODY IGM NEGATIVE (NEGATIVE); HEPATITIS B SURFACE ANTIGEN NEGATIVE (NEGATIVE); HEPATITIS C VIRUS ABY INDEX 0.1 INDEX (<0.8); HIV 1&2 SCREEN CENTAUR NEGATIVE (NEGATIVE)
[2019-12-12 15:07] LABS: HSV TYPE I IgM AB <1:10 titer (<1:10); HSV TYPE II IgG SPECIFIC 5.65 index (0.00-0.90); HSV TYPE II IgM ABY <1:10 titer (<1:10)
== END ==
LOC: M SFHCLERA 16:25
PROVIDERS: ATTEND Physician Assistant
DX: R10.2 Pelvic and perineal pain (principal); Z11.3 Encounter for screening for infections with a predominantly sexual mode of transmission; N94.9 Unspecified condition associated with female genital organs and menstrual cycle

== ENCOUNTER 2020-01-23 15:45 | Emergency (ER) | payer OTHER ==
[~2020-01-23] VITALS: Ht 170.2 cm; Wt 62.5 kg
[~2020-01-23 15:45] MED LIST changes: -EXCETAB33 PO
[2020-01-23] MEDS ORDERED: EXCETAB33 PO (16:28)
[2020-01-23 17:27] LABS: BASO # 0.1 10^3/uL (0.0-0.2); BASO % 0.7 % (0.0-1.0); EOS # 0.1 10^3/uL (0.0-0.5); EOS % 1.6 % (0.0-3.0); HEMATOCRIT 38.2 % (36.0-47.0); HEMOGLOBIN 13.3 g/dl (12.0-15.5); LYMPH # 1.6 10^3/uL (1.5-5.0); LYMPH % 23.2 % (24.0-44.0); MEAN CORPUSCULAR HEMOGLOBIN 32.3 pg (27.0-33.0); MEAN CORPUSCULAR HGB CONC 34.8 g/dl (32.0-36.5); MEAN CORPUSCULAR VOLUME 92.7 fl (80.0-96.0); MONO # 0.5 10^3/uL (0.0-0.8); MONO % 6.9 % (0.0-5.0); NEUTROPHILS # 4.5 10^3/uL (1.5-8.5); NEUTROPHILS % 67.3 % (36.0-66.0); PLATELET COUNT, AUTOMATED 247 10^3/uL (150-450); RED BLOOD COUNT 4.12 10^6/uL (4.00-5.40); WHITE BLOOD COUNT 6.7 10^3/uL (4.0-10.0)
[2020-01-23 17:31] LABS: VENOUS BASE EXCESS -1.5 (-2.0-2.0); VENOUS HCO3 24.8 MEQ/L (23.0-27.0); VENOUS O2 SATURATION 52.9 % (60.0-80.0); VENOUS PARTIAL PRESSURE CO2 48.2 mmHg (38.0-50.0); VENOUS TOTAL CO2 26.3 MEQ/L (24.0-28.0)
[2020-01-23 17:57] LABS: HEMOGLOBIN A1c 7.6 %
[2020-01-23 18:18] LABS: ACETONE/KETONE 1.94 MG/DL (<2.81); ALBUMIN 3.8 GM/DL (3.2-5.2); ALT/SGPT 20 U/L (12-78); BILIRUBIN,DIRECT 0.2 MG/DL (0.0-0.2); BILIRUBIN,TOTAL 0.6 MG/DL (0.2-1.0); BLOOD UREA NITROGEN 19 MG/DL (7-18); CALCIUM LEVEL 9.3 MG/DL (8.5-10.1); CARBON DIOXIDE LEVEL 29 MEQ/L (21-32); CHLORIDE LEVEL 105 MEQ/L (98-107); CREATININE FOR GFR 0.76 MG/DL (0.55-1.30); GLOMERULAR FILTRATION RATE > 60.0 (>60); GLUCOSE, FASTING 282 MG/DL (70-100); LIPASE 61 U/L (73-393); POTASSIUM SERUM 4.6 MEQ/L (3.5-5.1); SODIUM LEVEL 135 MEQ/L (136-145); TOTAL PROTEIN 7.4 GM/DL (6.4-8.2)
[2020-01-23 18:24] LABS: OSMOLALITY SERUM 301 MOSM/KG (275-295)
[2020-01-23] MEDS ORDERED: HumuLIN R (REGULAR) INSULIN (NovoLIN R) **100U/ML** PER UNIT SC STA (19:06)
[2020-01-23 19:46] LABS: HCG, SERUM QUALITATIVE NEGATIVE (NEGATIVE)
[2020-01-23 20:50] VITALS: BP 120/74
== END 2020-01-23 20:51 | disposition home or self-care (01) ==
LOC: M ED 15:45
DX: E10.65 Type 1 diabetes mellitus with hyperglycemia (principal); G43.909 Migraine, unspecified, not intractable, without status migrainosus; K21.9 Gastro-esophageal reflux disease without esophagitis; Z87.42 Personal history of other diseases of the female genital tract; Z79.4 Long term (current) use of insulin; Z88.8 Allergy status to other drugs, medicaments and biological substances

== ENCOUNTER → 2020-03-06 | Outpatient (REF) | payer OTHER ==
[~2020-03-06] MED LIST changes: +EXCETAB33 PO
== END ==
LOC: M LAB REF 19:54
PROVIDERS: ATTEND Physician Assistant
DX: R30.0 Dysuria (principal)

== ENCOUNTER 2020-03-22 20:39 | Emergency (ER) | payer OTHER ==
[~2020-03-22] VITALS: Ht 170.2 cm; Wt 63.6 kg
[2020-03-22] MEDS ORDERED: MORPHINE 4 MG/ML 1ML VIAL/SYRINGE (J2270) IV ONE (21:30)
[2020-03-22] MEDS ORDERED: PANTOPRAZOLE 40MG VIAL (C9113 PER 1) IV ONE (21:30)
[2020-03-22] MEDS ORDERED: NS 1,000 ML IV ONE (21:30)
[2020-03-22 21:36] LABS: BASO # 0.1 10^3/uL (0.0-0.2); BASO % 0.9 % (0.0-1.0); EOS # 0.2 10^3/uL (0.0-0.5); EOS % 2.6 % (0.0-3.0); HEMATOCRIT 42.8 % (36.0-47.0); HEMOGLOBIN 13.9 g/dl (12.0-15.5); LYMPH # 2.3 10^3/uL (1.5-5.0); MEAN CORPUSCULAR HEMOGLOBIN 30.2 pg (27.0-33.0); MEAN CORPUSCULAR HGB CONC 32.5 g/dl (32.0-36.5); MEAN CORPUSCULAR VOLUME 92.8 fl (80.0-96.0); MONO # 0.5 10^3/uL (0.0-0.8); MONO % 7.5 % (0.0-5.0); NEUTROPHILS # 3.4 10^3/uL (1.5-8.5); NEUTROPHILS % 53.5 % (36.0-66.0); PLATELET COUNT, AUTOMATED 318 10^3/uL (150-450); RED BLOOD COUNT 4.61 10^6/uL (4.00-5.40); WHITE BLOOD COUNT 6.4 10^3/uL (4.0-10.0)
[2020-03-22 21:55] LABS: ALBUMIN 4.1 GM/DL (3.2-5.2); BILIRUBIN,DIRECT 0.1 MG/DL (0.0-0.2); BILIRUBIN,TOTAL 0.3 MG/DL (0.2-1.0); TOTAL PROTEIN 8.2 GM/DL (6.4-8.2)
[2020-03-22] MEDS ORDERED: GASTROGRAFIN SOLUTION 30ML (Q9963) As Ordered ONE (21:58)
[2020-03-22] MEDS: GASTROGRAFIN SOLUTION 30ML PO SCH ×3 (22:37→23:05)
[2020-03-22] MEDS ORDERED: ISOVUE-370 76% 100ML VIAL As Ordered ONE (23:58)
--- NOTE | 2020-03-23 00:37 | REPVR ---
PROCEDURE INFORMATION: Exam: CT Abdomen And Pelvis With Contrast Exam date and time: 03/22/2020 9:43 PM Age: 29 years old Clinical indication: Abdominal pain; Localized; Left upper quadrant (luq); Additional info: Luq pain TECHNIQUE: Imaging protocol: Computed tomography of the abdomen and pelvis with intravenous contrast. Radiation optimization: All CT scans at this facility use at least one of these dose optimization techniques: automated exposure control; mA and/or kV adjustment per patient size (includes targeted exams where dose is matched to clinical indication); or iterative reconstruction. Contrast material: ISO; Contrast volume: 100 ml; Contrast route: INTRAVENOUS (IV); COMPARISON: CT ABD/PEL W/IV CONTRAST ONLY 09/25/2019 2:09 PM FINDINGS: Liver: Normal. No mass. Gallbladder and bile ducts: Normal. No calcified stones. No ductal dilation. Pancreas: Normal. No ductal dilation. Spleen: Normal. No splenomegaly. Adrenals: Normal. No mass. Kidneys and ureters: Normal. No hydronephrosis. Stomach and bowel: Slight perirectal induration and slight rectal wall thickening. Appendix: A normal appendix is seen. Intraperitoneal space: Trace fluid in the cul-de-sac which is physiologic in amount. Vasculature: Unremarkable. No abdominal aortic aneurysm. Lymph nodes: Unremarkable. No enlarged lymph nodes. Urinary bladder: Unremarkable as visualized. Reproductive: Unremarkable as visualized. Bones/joints: Bilateral spondylolysis of L5 with mild anterolisthesis relative to S1. Soft tissues: Unremarkable. IMPRESSION: 1. Question of minimal nonspecific distal colitis or proctitis which is similar to 09/25/2019. 2. Bilateral spondylolysis of L5 with mild anterolisthesis which is unchanged from the prior study. 3. Otherwise negative CT abdomen/pelvis. Electronically signed by: Urban De Guzman On 03/23/2020 00:38:08 AM
[2020-03-23] MEDS ORDERED: GI COCKTAIL 50ML BTL(HYOSCYAMINE/MAALOX/LIDOCAINE VISCOUS)(1:3:1) PO ONE (00:45)
[2020-03-23] MEDS ORDERED: OXYCODONE/APAP 5MG/325MG(BULK FOR ED) 1 TABLET PO ONE (02:00)
[2020-03-23 02:26] VITALS: BP 118/68
== END 2020-03-23 02:40 | disposition home or self-care (01) ==
LOC: M ED 20:39
DX: R10.12 Left upper quadrant pain (principal); E10.9 Type 1 diabetes mellitus without complications; M43.06 Spondylolysis, lumbar region; Z88.8 Allergy status to other drugs, medicaments and biological substances; Z79.4 Long term (current) use of insulin
CPT/HCPCS: 74177; 80047; 80076; 81001; 83690; 84702; 85025; 87086; 93041; 96361; 96374; 96375; 99285; C9113; J2270; Q9967

== ENCOUNTER 2020-05-01 18:22 | Emergency (ER) | payer OTHER ==
[~2020-05-01] VITALS: Ht 170.2 cm; Wt 66.0 kg
[2020-05-01 19:48] LABS: HEMATOCRIT 40.7 % (36.0-47.0); MEAN CORPUSCULAR HEMOGLOBIN 31.3 pg (27.0-33.0); MEAN CORPUSCULAR HGB CONC 34.4 g/dl (32.0-36.5); MEAN CORPUSCULAR VOLUME 90.8 fl (80.0-96.0); PLATELET COUNT, AUTOMATED 303 10^3/uL (150-450); RED BLOOD COUNT 4.48 10^6/uL (4.00-5.40); WHITE BLOOD COUNT 6.1 10^3/uL (4.0-10.0)
[2020-05-01 20:11] LABS: BLOOD UREA NITROGEN 13 MG/DL (7-18); CALCIUM LEVEL 9.1 MG/DL (8.5-10.1); CARBON DIOXIDE LEVEL 28 MEQ/L (21-32); CHLORIDE LEVEL 106 MEQ/L (98-107); CREATININE FOR GFR 0.92 MG/DL (0.55-1.30); GLOMERULAR FILTRATION RATE > 60.0 (>60); GLUCOSE, FASTING 231 MG/DL (70-100); HCG, SERUM QUANTITATIVE < 1.0 MIU/ML; POTASSIUM SERUM 4.1 MEQ/L (3.5-5.1); SODIUM LEVEL 139 MEQ/L (136-145)
[2020-05-01 20:28] VITALS: BP 111/75
== END 2020-05-01 20:49 | disposition home or self-care (01) ==
LOC: M ED 18:22
DX: E10.9 Type 1 diabetes mellitus without complications (principal); N92.6 Irregular menstruation, unspecified; Z88.8 Allergy status to other drugs, medicaments and biological substances; Z79.4 Long term (current) use of insulin

== ENCOUNTER 2020-09-26 17:20 | Emergency (ER) | payer OTHER ==
[~2020-09-26] VITALS: Ht 170.2 cm; Wt 71.3 kg
[~2020-09-26 17:20] MED LIST changes: -CLIN150C14 PO; +CLIN150C15 PO
[2020-09-26] MEDS ORDERED: NS 1,000 ML IV ONE (18:10)
[2020-09-26 18:49] LABS: BASO # 0.1 10^3/uL (0.0-0.2); BASO % 0.7 % (0.0-1.0); EOS # 0.1 10^3/uL (0.0-0.5); EOS % 1.3 % (0.0-3.0); HEMATOCRIT 37.8 % (36.0-47.0); HEMOGLOBIN 13.2 g/dl (12.0-15.5); MEAN CORPUSCULAR HEMOGLOBIN 31.8 pg (27.0-33.0); MEAN CORPUSCULAR HGB CONC 34.9 g/dl (32.0-36.5); MEAN CORPUSCULAR VOLUME 91.1 fl (80.0-96.0); MONO # 0.6 10^3/uL (0.0-0.8); MONO % 7.5 % (2.0-8.0); NEUTROPHILS # 5.4 10^3/uL (1.5-8.5); NEUTROPHILS % 66.1 % (36.0-66.0); PLATELET COUNT, AUTOMATED 291 10^3/uL (150-450); RED BLOOD COUNT 4.15 10^6/uL (4.00-5.40); WHITE BLOOD COUNT 8.2 10^3/uL (4.0-10.0)
--- NOTE | 2020-09-26 19:13 | REP ---
INDICATION: 9 weeks, RLQ pain x5 min, resolved now. COMPARISON: None. TECHNIQUE: Real-time sonographic evaluation of gravid uterus performed utilizing transabdominal technique. FINDINGS: There is a single living intrauterine gestation. The estimated gestational age is 9 weeks 3 days based on a crown-rump length of 25 mm, EDC 04/28/2021. heart rate is 185 beats per minute. There is no evidence of subchorionic hemorrhage. Length of the uterus is 10.1 cm. The ovaries could not be visualized. No definite free fluid is seen. IMPRESSION: Viable intrauterine gestation, estimated gestational age is 9 weeks 3 days, heart rate 185 beats per minute. No subchorionic hemorrhage. Ovaries could not be visualized. <Electronically signed by Feroz Blakely > 09/26/20 [id number]
[2020-09-26 19:14] LABS: FERRITIN 39 NG/ML (8-252); IRON (FE) 53 UG/DL (50-170); PERCENT SATURATION 14.6 % (13.2-45.0); TOTAL IRON BINDING CAPACITY 363 UG/DL (250-450)
[2020-09-26 19:21] LABS: FOLATE > 24.0 NG/ML (>5.4); VITAMIN B12 LEVEL 884 PG/ML (247-911)
[2020-09-26 19:32] LABS: ALBUMIN 3.7 GM/DL (3.2-5.2); ALT/SGPT 13 U/L (12-78); BILIRUBIN,DIRECT 0.1 MG/DL (0.0-0.2); BILIRUBIN,TOTAL 0.3 MG/DL (0.2-1.0); BLOOD UREA NITROGEN 12 MG/DL (7-18); CALCIUM LEVEL 8.9 MG/DL (8.5-10.1); CARBON DIOXIDE LEVEL 25 MEQ/L (21-32); CHLORIDE LEVEL 107 MEQ/L (98-107); CREATININE FOR GFR 0.56 MG/DL (0.55-1.30); GLOMERULAR FILTRATION RATE > 60.0 (>60); GLUCOSE, FASTING 81 MG/DL (70-100); HCG, SERUM QUANTITATIVE 103707 MIU/ML; LIPASE 61 U/L (73-393); SODIUM LEVEL 138 MEQ/L (136-145); TOTAL PROTEIN 7.4 GM/DL (6.4-8.2)
[2020-09-26 21:23] VITALS: BP 120/70
== END 2020-09-26 21:29 | disposition home or self-care (01) ==
LOC: M ED 17:20
DX: O26.891 Other specified pregnancy related conditions, first trimester (principal); R10.9 Unspecified abdominal pain; R11.0 Nausea; O24.011 Pre-existing type 1 diabetes mellitus, in pregnancy, first trimester; Z3A.09 9 weeks gestation of pregnancy

== ENCOUNTER 2024-05-22 19:57 | Emergency (ER) | payer OTHER ==
[~2024-05-22] VITALS: Ht 170.2 cm; Wt 98.6 kg
[~2024-05-22 19:57] MED LIST changes: +BACTDSTA; -CEFD1CAP8 PO; +CEFD1CAP9 PO; -CLIN150C15 PO; +CLIN150C17 PO; +EXCETAB32 PO; -EXCETAB33 PO; +ONDA-84 PO; -ONDA8TAB10 PO; -SULF1TAB93
[2024-05-22 20:01] VITALS: BP 131/76; TEMP 97.6; O2SAT 98
== END 2024-05-22 22:27 | disposition home or self-care (01) ==
LOC: M ED 19:57
DX: B34.8 Other viral infections of unspecified site (principal); L27.0 Generalized skin eruption due to drugs and medicaments taken internally; R00.2 Palpitations; E11.9 Type 2 diabetes mellitus without complications; G43.909 Migraine, unspecified, not intractable, without status migrainosus; Z87.442 Personal history of urinary calculi; Z79.4 Long term (current) use of insulin